=== PATIENT | female | born 1995 | race Caucasian/White ===

== ENCOUNTER → 2017-01-15 | Outpatient (CLI) | payer OTHER ==
[~2017-01-15] MED LIST: PEDICHW50 PO
== END | disposition home or self-care (01) ==
LOC: C.LAB1850 08:49
PROVIDERS: ATTEND Physician Assistant
DX: Z30.432 Encounter for removal of intrauterine contraceptive device (principal)

== ENCOUNTER → 2017-01-25 | Outpatient (CLI) | payer OTHER ==
--- NOTE | 2017-01-25 14:03 | MAMMOGRAPHY REPORT ---
ULTRASOUND OF BOTH BREASTS: 01/25/2017 CLINICAL HISTORY: The patient reports having a baby last February and breast-fed for one week. She was placed on the Mirena IUD in May and for the past 4-5 months has noticed bilateral clear spo ntaneous nipple discharge. The Mirena IUD was removed in December. She denies any bloody nipple dischar ge or palpable lumps. COMPARISON: No prior exams were available for comparison. TECHNIQUE: Real-time targeted ultrasound of both breasts was performed. FINDINGS: Real-time, high-resolution targeted ultrasound was performed of bilateral subareolar regio ns. Sonographically normal tissue is seen in these regions, without evidence of an intraductal mass or other suspicious sonographic abnormality. IMPRESSION: ACR BI-RADS CATEGORY 1: NEGATIVE No intraductal mass or other suspicious sonographic abnormality seen in bilateral subareolar regions. There is no sonographic evidence of malignancy. Recommend clinical follow-up for bilateral clear n ipple discharge. The patient was verbally notified of the results. Nadia Gray M.D. ah/:01/25/2017 11:16:18 Turn Down Man: Elva MARCELINO(Serenity)(Lilia), [facility] letter sent: Normal 1/2 BI-RADS Code: ACR BI-RADS Category 1: Negative
== END | disposition home or self-care (01) ==
LOC: C.MAMM 10:50
PROVIDERS: ATTEND Physician Assistant
DX: N64.52 Nipple discharge (principal)

== ENCOUNTER → 2017-07-13 | Outpatient (CLI) | payer OTHER | END | disposition home or self-care (01) | LOC: C.LABSPEC 11:27 | PROVIDERS: ATTEND Physician Assistant | DX: R39.9 Unspecified symptoms and signs involving the genitourinary system (principal) ==

== ENCOUNTER 2020-12-07 04:31 | Observation (INO) ==
[2020-12-07] MEDS ORDERED: OXYTOCIN 30 UNITS/500 ML BAG IV PRN (06:45)
[2020-12-07] MEDS ORDERED: LACTATED RINGER'S 1,000 ML IV PRN (06:45)
[2020-12-07 07:10] LABS: Hematocrit (blood only) 35.1 % (37-47); Hemoglobin 11.8 g/dL (12.0-16.0); Mean Corpuscular Hemoglobin 30.7 pg (25-34); Mean Corpuscular Hgb Conc 33.6 g/dL (32-36); Mean Corpuscular Volume 91.4 fL (80-100); Mean Platelet Volume 11.1 fL (7.4-10.4); Platelet Count 285 K/uL (130-400); RDW Coefficient of Variation 13.8 % (11.5-14.5); RDW Standard Deviation 45.2 fL (36.4-46.3); Red Blood Count 3.84 M/uL (4.2-5.4); White Blood Count 10.43 K/uL (4.8-10.8)
--- NOTE | 2020-12-07 07:40 | History & Physical Report ---
Date of Service December 07, 2020 Assessment & Plan (1) Encounter for supervision of normal in multigravida, antepartum: 25yo at 38.1 weeks GA. Labor. 1. Fetus: Cat 1 2. Labor: Progressing. 3. GBS: Negative 4. Vital: WNL (2) Normal labor: Admission and Anticipated Discharge Date Admission Date: December 07, 2020 History of Present Illness Primary Care Provider: NO PCP 25yo at 38.1 weeks GA. Present for labor. Patient progressed from 4cm to 5cm during labor evaluation. Denies LOF, VB. Good FM. OB Labs: Blood Type O Positive 05/05/20 Antibody Screen NEGATIVE 05/05/20 Hemoglobin 11.9 g/dL (12.0-16.0) L 09/23/20 Hematocrit 35.4 % (37-47) L 09/23/20 Mean Corpuscular Volume 92.4 fL (80-100) 05/05/20 Platelet Count 279 K/uL (130-400) 05/05/20 Rubella IgG Antibody Immune (Immune) 05/05/20 Rapid Plasma Reagin Nonreactive (Nonreactive) 05/05/20 Hepatitis B Surface Antigen Neg (Neg) 05/05/20 HIV (1&2) Ab and P24 Ag, 4th Gener Neg (Neg) 05/05/20 Glucose 1 Hour 50 gm Load 107 mg/dl (70-130) 09/23/20 OB Optional Labs: Chlamydia trachomatis RNA NOT DETECTED (NOT DETECTED) 05/05/20 Neisseria gonorrhoeae RNA NOT DETECTED (NOT DETECTED) 05/05/20 Labs Reviewed: neg cf/sma wyh declines genetics [facility] Allergies Allergy/AdvReac Type Severity Reaction Status Date / Time No Known Allergies Allergy Verified 12/02/20 13:45 Home Medications Medication Instructions Recorded Confirmed Type prenat.vits,lissette,fam-vyxm-rsxpc 1 tab PO DAILY 05/04/20 12/07/20 History Patient History Surgical History History of foot surgery S/P tonsillectomy S/P wisdom tooth extraction Family History Sister Depression Other Breast cancer Myocardial infarction Ovarian cancer Social History Smoking Status: Current every day smoker Tobacco Type: Cigarettes Cigarettes Per Day: 5; Hx Alcohol Use: No Hx Substance Use: No Preferred Language: Burundian Communication Ability: Effective Ammonia Technician Required: No Beliefs That Will Affect Care: None marital status: Single marital status details: Laureano (25) [phone] Current Living Situation: Family Current Living Situation Comment: lives with FOB, daughter, step daughter, 1 dog. current occupational status: unemployed Other Information That Helps Us Care for You: No Feels Safe at Home: Yes Safety Concerns: Feels Safe At This Time Assistive Devices: None Physical Exam Constitutional: WD/WN, vitals as above Psychiatric: A+Ox3, euthymic affect Genitourinary: OB Exam Abdomen: + vertex Manual OB Exam: + cervical dilation 5 cm, + cervical effacement 80% and + station -2 OB Exam Monitor Tracing: + external FHT monitor used, + external uterine monitor used, + category I and + normal FHT variability; no early decelerations present, no late decelerations present and no variable decelerations Results & Data ([facility]) Vital Signs (Past 12 Hours) Vital Signs Temp Pulse Resp BP 12/07/20 04:49 36.9 C 18 12/07/20 04:44 92 H 126/89 Code Status & VTE Plan VTE Prophylaxis Plan VTE Prophylaxis will be ordered: No Coding Level of Care Code None Diagnoses Encounter for supervision of normal in multigravida, antepartum Z34.80 Normal labor O80; Z37.9
--- NOTE | 2020-12-07 09:03 | Labor Progress Brief Note ---
Date of Service December 07, 2020 Subjective Ctx have spaced out, rates same intensity still Assessment & Plan (1) Encounter for supervision of normal in multigravida, antepartum: 25 y/o at 38 1/7 wga admitted for labor VSS Fetus cat 1 Labor - EMR notes SVE by nursing change from 4-4.5 earlier this AM, would say 4/75/-2 on my exam. Ctx seem to have spaced out, with GA discussed cannot augment. As this is my first exam, will let pt ambulate and recheck in few hours GBS neg, will today. Will re-collect if needed Admission and Anticipated Discharge Date Admission Date: December 07, 2020 Physical Exam Genitourinary: Manual OB Exam: + cervical dilation 4 cm, + cervical effacement 70% and + station -2 OB Exam Monitor Tracing: + external FHT monitor used, + external uterine monitor used (q3-9) and + category I (125/mod/+accel/-decel) Results & Data ([facility]) Vital Signs (Past 12 Hours) Vital Signs Temp Pulse Resp BP 12/07/20 08:18 82 126/74 12/07/20 08:17 97.7 F 18 12/07/20 04:49 98.4 F 18 12/07/20 04:44 92 H 126/89 Coding Level of Care Code None Diagnoses Encounter for supervision of normal in multigravida, antepartum Z34.80
--- NOTE | 2020-12-07 11:21 | Obstetrical Progress Note ---
Date of Service December 07, 2020 Assessment & Plan (1) Encounter for supervision of normal in multigravida, antepartum: 25 y/o at 38 1/7 wga admitted for labor VSS Fetus cat 1 Labor - SVE for me unchanged after ~2.5 hrs, has been around 4-4.5 since 5AM as well. Ctx have spaced out, more around every 10 minutes. Discussed again with GA, cannot augment so I think ok to discharge. With early labor, hard to say when will be come active but can be at any point so should call if ctx worsen from this point, decreased FM, LOF, VB. Has appt this , rec to keep. GBS neg, will today. Re-collected prior to my exam today Admission and Anticipated Discharge Date Admission Date: December 07, 2020 Subjective Ctx have spaced out, rates same intensity still Physical Exam Genitourinary: Manual OB Exam: + cervical dilation 4 cm, + cervical effacement 70% and + station -2 OB Exam Monitor Tracing: + external FHT monitor used, + external uterine monitor used (q3-10) and + category I (125/mod/+accel/-decel) Results & Data ([facility]) Vital Signs (Past 12 Hours) Vital Signs Temp Pulse Resp BP 12/07/20 08:18 82 126/74 12/07/20 08:17 97.7 F 18 12/07/20 04:49 98.4 F 18 12/07/20 04:44 92 H 126/89 PG Care Time/CCT Total # of Minutes Spent Total Time Spent with Patient: Total time spent is greater than 50% in coordination of care (as documented) at patient's floor/unit and/or counseling patient: Coding Level of Care Code None Diagnoses Encounter for supervision of normal in multigravida, antepartum Z34.80
--- NOTE | 2020-12-15 13:27 | Discharge Summary ---
Date of Service December 15, 2020 Admission HPI Per Admitting Provider 25yo at 38.1 weeks GA. Present for labor. Patient progressed from 4cm to 5cm during labor evaluation. Denies LOF, VB. Good FM. OB Labs: Blood Type O Positive 05/05/20 Antibody Screen NEGATIVE 05/05/20 Hemoglobin 11.9 g/dL (12.0-16.0) L 09/23/20 Hematocrit 35.4 % (37-47) L 09/23/20 Mean Corpuscular Volume 92.4 fL (80-100) 05/05/20 Platelet Count 279 K/uL (130-400) 05/05/20 Rubella IgG Antibody Immune (Immune) 05/05/20 Rapid Plasma Reagin Nonreactive (Nonreactive) 05/05/20 Hepatitis B Surface Antigen Neg (Neg) 05/05/20 HIV (1&2) Ab and P24 Ag, 4th Gener Neg (Neg) 05/05/20 Glucose 1 Hour 50 gm Load 107 mg/dl (70-130) 09/23/20 OB Optional Labs: Chlamydia trachomatis RNA NOT DETECTED (NOT DETECTED) 05/05/20 Neisseria gonorrhoeae RNA NOT DETECTED (NOT DETECTED) 05/05/20 Labs Reviewed: neg cf/sma akh declines genetics ak Admission Exam (Per Admitting) Genitourinary Manual OB Exam: + cervical dilation + 4 cm, + cervical effacement + 70% and + station + -2 OB Exam Monitor Tracing: + external FHT monitor used, + external uterine monitor used (q3-10) and + category I (125/mod/+accel/-decel) Discharge Data Consultations 12/07/20 06:45 Consult Anesthesiology Stat Hospital Course (1) Encounter for supervision of normal in multigravida, antepartum: SVE for me unchanged after ~2.5 hrs, has been around 4-4.5 since 5AM as well. Ctx have spaced out, more around every 10 minutes. Discussed again with GA, cannot augment so I think ok to discharge. With early labor, hard to say when will be come active but can be at any point so should call if ctx worsen from this point, decreased FM, LOF, VB. GBS neg, will today. Re-collected prior to my exam today. Stable for discharge home Coding Level of Care Code None Diagnoses Encounter for supervision of normal in multigravida, antepartum Z34.80
== END 2020-12-07 11:35 | disposition home or self-care (01) ==
LOC: OPB 04:31 → 4S1 04:33 → INTOOBSV 06:45 → 4S1 06:45
DX: Z34.83 Encounter for supervision of other normal pregnancy, third trimester; Z3A.38 38 weeks gestation of pregnancy; O60.03 Preterm labor without delivery, third trimester; F17.210 Nicotine dependence, cigarettes, uncomplicated

== ENCOUNTER 2020-12-19 03:00 | Inpatient (IN) ==
[2020-12-19] MEDS ORDERED: OXYTOCIN 30 UNITS/500 ML BAG IV PRN ×3 (03:37→12:27)
[2020-12-19] MEDS: LACTATED RINGER'S 1,000 ML IV PRN ×2 (03:57→04:54)
[2020-12-19] MEDS ORDERED: ePHEDrine sulfate 50 MG/ML AMP ONE (04:11)
[2020-12-19] MEDS ORDERED: SODIUM CHLORIDE 0.9% INJ 10 ML VIAL ONE (04:11)
[2020-12-19] MEDS ORDERED: BUPIVACAINE 0.25% 30 ML VIAL ONE (04:11)
[2020-12-19] MEDS ORDERED: fentaNYL citrate 100 MCG/2 ML VIAL ONE (04:11)
[2020-12-19 04:12] LABS: Hematocrit (blood only) 36.8 % (37-47); Hemoglobin 12.4 g/dL (12.0-16.0); Mean Corpuscular Hgb Conc 33.7 g/dL (32-36); Mean Corpuscular Volume 88.9 fL (80-100); Mean Platelet Volume 10.9 fL (7.4-10.4); Platelet Count 311 K/uL (130-400); RDW Coefficient of Variation 13.6 % (11.5-14.5); RDW Standard Deviation 44.6 fL (36.4-46.3); Red Blood Count 4.14 M/uL (4.2-5.4); White Blood Count 11.89 K/uL (4.8-10.8)
[2020-12-19] MEDS ORDERED: fentaNYL 2MCG/ML ROPIVACAINE 1.25MG/ML 100 ML BAG EPI ONE (04:12)
[2020-12-19] MEDS ORDERED: fentaNYL 2MCG/ML ROPIVACAINE 1.25MG/ML 100 ML BAG EPI PRN (04:34)
[2020-12-19] MEDS ORDERED: PROMETHAZINE HCL 25 MG in SODIUM CHLORIDE 0.9% 50 ML IV PRN (04:34)
[2020-12-19] MEDS ORDERED: NALOXONE HCL 0.4 MG/1 ML VIAL/CARP IV PRN (04:34)
[2020-12-19] MEDS ORDERED: ePHEDrine sulfate 50 MG/ML AMP IV PRN (04:34)
[2020-12-19] MEDS ORDERED: diphenhydrAMINE 50 MG/ML VIAL IV PRN (04:34)
[2020-12-19] MEDS ORDERED: ONDANSETRON INJ 2 MG/ML 2 ML VIAL IV PRN (04:34)
[2020-12-19] MEDS ORDERED: NALOXONE HCL 1 MG in SODIUM CHLORIDE 0.9% 1000ML 1,000 ML IV PRN (04:34)
--- NOTE | 2020-12-19 04:35 | Anesthesiology Consultation ---
Date of Service December 19, 2020 Assessment & Plan ASA ASA2 Proposed Anesthesia Anesthesia Type: Labor Epidural Risk / Benefits Reviewed With: PT / POA / Parent / Guardian, Accepts Plan and Informed Consent Obtained History Height/Weight Height: 5 ft 4 in Weight: 75.75 kg Allergies Allergy/AdvReac Type Severity Reaction Status Date / Time No Known Allergies Allergy Verified 12/19/20 03:17 Medications Home Medications Medication Instructions Recorded Confirmed Last Taken prenat.vits,lissette,rru-bhyp-aujrt 1 tab PO DAILY 05/04/20 12/19/20 12/18/20 Active Medications Generic Name Dose Route Start Last Admin Trade Name Freq PRN Reason Stop Dose Admin Lactated Ringer's 1,000 mls @ 125 mls/hr 12/19/20 03:37 12/19/20 04:54 Lr IV 12/21/20 03:36 125 mls/hr .Q8H PRN Administration L&D Protocol Protocol Exercise / Class Metabolic Activity II 4-5 Yardwork/Stairs/Walk up hill Past Family History Family History Sister Depression Other Breast cancer Myocardial infarction Ovarian cancer Past Surgical History Surgical History History of foot surgery S/P tonsillectomy S/P wisdom tooth extraction Past Anesthesia History No Hx of Anesthesia Complications and No Family Hx of Anesthesia Complications History of PONV No Hx of PONV and No Hx of Motion Sickness Social History Smoking Status: Current every day smoker tobacco type: cigarettes Smoking cigarettes per day: 5 Hx Alcohol Use: No Hx Substance Use: No substance use type: does not use Review of Systems denies fever/cough/ colds/ chest pain/ SOB/ ISABEL denies ISABEL Physical Exam Vital Signs Last Vital Signs Temp 36.8 C 12/19/20 03:18 Pulse 86 12/19/20 05:20 Resp 18 12/19/20 05:15 BP 119/65 12/19/20 05:18 Pulse Ox 99 12/19/20 05:20 ENMT Mouth: no TMJ abnormality and no dentition abnormality Thyromental Distance: > or= 3.5 Finger Breadths Mallampati Class: II Neck neck extension not limited Respiratory normal respiratory effort; no respiratory distress Auscultation: lungs clear to auscultation bilaterally Cardiovascular Rate/Rhythm: regular rate and regular rhythm Neurologic moves all extremities Psychiatric Orientation: alert and oriented x 3 Testing Laboratory Results 12/19/20 04:02 Blood Type O Positive 12/19/20 04:02 Antibody Screen NEGATIVE 12/19/20 04:02
[2020-12-19] MEDS ORDERED: DIPHTHERIA/TETANUS/PERTUSSIS 0.5 ML SYR/VIAL IM ONE (12:27)
[2020-12-19] MEDS ORDERED: HYDROCORTISONE ACETATE 25 MG SUPP PR PRN (12:27)
[2020-12-19] MEDS ORDERED: BENZOCAINE 20% AER SPR 82.5 GM CAN EXT PRN (12:27)
[2020-12-19] MEDS ORDERED: SUPERCREAM 0.870% 15 GM JAR EXT PRN (12:27)
[2020-12-19] MEDS ORDERED: bisacodyL 10 MG SUPP PR PRN (12:27)
--- NOTE | 2020-12-19 14:06 | Delivery Summary ---
DATE OF SERVICE: 12/19/2020 PROCEDURE: Normal spontaneous vaginal delivery. SURGEON: Mateusz Novak MD. PREOPERATIVE DIAGNOSES: 1. Single intrauterine at 39 weeks 6 days gestational age. 2. Spontaneous labor. POSTOPERATIVE DIAGNOSES: 1. Single intrauterine at 39 weeks 6 days gestational age. 2. Spontaneous labor. 3. Status post delivery. ESTIMATED BLOOD LOSS: 300 mL. DRAINS: None. FLUIDS: Continuous lactated Ringer. URINE OUTPUT: None. COMPLICATIONS: None. FINDINGS: Viable male with weight and Apgars pending. INDICATIONS: Elizabeth is a 25-year-old G2, P1-0-0-1 admitted at 5 cm dilation. The patient underwent artificial rupture of membranes and was later put on oxytocin. She received epidural for anesthesia and progressed to complete-complete, +2 station, pushed for approximately 2 contractions to achieve delivery. PROCEDURE DESCRIPTION: The patient progressed to 10 cm dilated, 100% effaced, positive 2 station, pu shed over intact perineum with epidural anesthesia, delivered a viable male infant, weight and Apgars as noted above. Head of the delivered in ANA MARIA position, restituted to left transverse. A nu chal cord was noted, which was easily reduced. Body and shoulders quickly followed. was not ed to be vigorous soon after delivery and 1 minute delayed cord clamping was initiated. Cord was the n double clamped and cut. Cord blood was obtained. Attention was then turned to delivery of the rajwinder centa, which was delivered intact with 3-vessel cord. Inspection of the perineum, vagina, cervix no alan no lacerations. Sponge and instrument counts were correct at the completion of case. Job ID: [id number]
--- NOTE | 2020-12-19 15:16 | Anesthesia Procedure Note ---
Date of Service December 19, 2020 Anesthesia Post Epidural Note Vital Signs Vital Signs: Temp Pulse Resp BP Pulse Ox 36.7 C 75 18 119/64 100 12/19/20 11:09 12/19/20 14:54 12/19/20 13:40 12/19/20 14:54 12/19/20 12:14 Pain Intensity Abdomen: Pain Intensity: 0 Notes Mental Status: alert / awake / arousable and participated in evaluation Patient Amnestic to Procedure: Yes Nausea / Vomiting: adequately controlled Pain: adequately controlled Airway Patency, RR, SpO2: stable & adequate BP & HR: stable & adequate Hydration State: stable & adequate Anesthetic Complications: no major complications apparent and Pt Satisfied with anesthetic care
[2020-12-19] MEDS: DOCUSATE SODIUM 100 MG CAP PO SCH (19:57)
[2020-12-19] MEDS: IBUPROFEN 600 MG TAB PO PRN (19:58)
[2020-12-19] MEDS: ACETAMINOPHEN 325 MG TAB PO PRN (19:58)
[2020-12-20] MEDS: IBUPROFEN 600 MG TAB PO PRN (02:33)
[2020-12-20] MEDS: ACETAMINOPHEN 325 MG TAB PO PRN (03:41)
--- NOTE | 2020-12-20 07:28 | Obstetrical Progress Note ---
Date of Service December 20, 2020 Assessment & Plan (1) Encounter for care and examination after delivery: 25yo day 1 s/p . Doing well. Stable for discharge Subjective Ambulation: ambulating normally Voiding: no voiding problems Diet Tolerance:: regular diet Lochia:: Moderate Physical Exam Constitutional WD/WN, vitals as above Respiratory normal respiratory effort; no respiratory distress and no labored breathing Gastrointestinal (Abdomen) Inspection/Auscultation: abdomen normal to inspection; abdomen not distended Percussion/Palpation: abdomen soft; abdomen nontender, no guarding and abdomen n ot rigid Genitourinary OB Exam Abdomen: + fundal height Fundus: + firm and + relation to umbilicus (Below); not tender and not boggy Results & Data ([facility]) Vital Signs (Past 12 Hours) Vital Signs Temp Pulse Resp BP Pulse Ox 12/20/20 03:30 36.4 C L 76 17 128/77 99 12/19/20 23:50 36.6 C 77 15 117/73 98 12/19/20 19:30 36.8 C 85 16 120/79 99
[2020-12-20] MEDS ORDERED: FERROUS SULFATE 325 MG TAB PO SCH (08:00)
[2020-12-20] MEDS ORDERED: PRENATAL VITAMIN 1 TAB PO SCH (08:00)
[2020-12-20] MEDS: DOCUSATE SODIUM 100 MG CAP PO SCH (08:29)
[2020-12-20] MEDS ORDERED: bisacodyL 5 MG TABEC PO SCH (20:00)
== END 2020-12-20 13:28 | disposition home or self-care (01) | DRG 807 ==
LOC: OPB 03:00 → 4S1 03:02 → 4S2 15:49

== ENCOUNTER 2021-11-25 16:06 | Observation (INO) ==
[2021-11-25] MEDS ORDERED: FAMOTIDINE 20MG IV PUSH 20 MG/5 ML SYR IV STA (17:12)
[2021-11-25] MEDS ORDERED: ACETAMINOPHEN 1,000 MG/100 ML VIAL IV STA (17:12)
[2021-11-25 17:54] LABS: Basophils # (auto) 0.03 K/uL (0-0.2); Basophils % (auto) 0.5 %; Eosinophils # (auto) 0.07 K/uL (0-0.5); Eosinophils % (auto) 1.2 %; Hematocrit (blood only) 42.6 % (37-47); Hemoglobin 14.5 g/dL (12.0-16.0); Immature Granulocytes # (auto) 0.01 K/uL (0.00-0.02); Immature Granulocytes % (auto) 0.2 %; Lymphocytes # (auto) 1.79 K/uL (1.2-3.4); Lymphocytes % (auto) 29.6 %; Mean Corpuscular Hemoglobin 30.7 pg (25-34); Mean Corpuscular Volume 90.1 fL (80-100); Mean Platelet Volume 11.9 fL (7.4-10.4); Neutrophils # (auto) 3.85 K/uL (1.4-6.5); Neutrophils % (auto) 63.5 %; Platelet Count 302 K/uL (130-400); RDW Coefficient of Variation 13.7 % (11.5-14.5); RDW Standard Deviation 45.2 fL (36.4-46.3); Red Blood Count 4.73 M/uL (4.2-5.4); White Blood Count 6.05 K/uL (4.8-10.8)
--- NOTE | 2021-11-25 18:00 | Emergency Department Note ---
History of Present Illness General Chief complaint: Chest Pain Stated complaint: CHEST PAINS Time Seen by Provider: 11/25/21 16:49 Source: patient Mode of arrival: ambulatory Limitations: no limitations History of Present Illness Provider complaint: Chest pain Onset (ago): day(s) 1 Location: chest Radiation: back and abdomen Maximum Pain Intensity: 3 Exacerbated By: + eating Associated symptoms: + nausea/vomiting; no fever/chills or no shortness of breath Treatments prior to arrival: none This is a 26-year-old female who presents emergency department with concern for chest pain. She states symptoms initially began yesterday, with some mild radiation into her upper back. She states she did notice the pain was worse after eating. She states no prior similar symptoms. She does have prior history of GERD and this felt different. She states she took some Aleve last night was able to go to sleep. She states when he woke up this morning there was discomfort still present although it was not as severe. She states she tried to eat cantaloupe for breakfast and subsequently vomited. She denies any hematemesis. States after this the pain felt worse in her chest as well as into her back and in the upper part of her stomach. Patient denies fevers, chills, cough, trouble breathing. She denies any recent URI symptoms. She denies any change in urine or stools. Patient states she does use control pills, no other medications. Pt seen during a time of high acuity and national emergency pandemic while wearing PPE. Home Medications Medication Instructions Recorded Confirmed Type norethindrone acetate 1 mg-ethinyl See Rx Instructions .ROUTE 10/20/21 11/25/21 Rx estradiol 20 mcg tablet (Junel) .COMPLEX #21 tab Allergies Allergy/AdvReac Type Severity Reaction Status Date / Time No Known Allergies Allergy Verified 11/25/21 18:16 Past Med/Surg History Medical History No pertinent past medical history Surgical History History of foot surgery S/P tonsillectomy S/P wisdom tooth extraction Family History Sister Depression Grandmother (Paternal) Breast cancer Great Grandmother Mother Ovarian cancer Grandmother (Maternal) Myocardial infarction Denies family history of Prostate cancer Colorectal cancer Social History Smoking Status: Current every day smoker Tobacco Type: Cigarettes Age Started Using Tobacco: 11; Cigarettes Per Day: 5-7; Second Hand Exposure: No; Do You Dip or Chew Tobacco: No; Tobacco Cessation Education Requested by Patient: No Hx Alcohol Use: No Hx Substance Use: No Preferred Language: Gibraltarian Communication Ability: Effective Study Assistant Required: No Beliefs That Will Affect Care: None marital status: Single marital status details: Laureano (26) [phone] Current Living Situation: Family Current Living Situation Comment: lives with FOB, daughter, step daughter, 1 dog. current occupational status: unemployed Other Information That Helps Us Care for You: No Feels Safe at Home: Yes Safety Concerns: Feels Safe At This Time caffeine: Yes Dental Care, Regularly: Yes Physical Activity Frequency: Daily Seatbelt Use: always Sunscreen Use: Yes Assistive Devices: None Review of Systems A total of 10 systems reviewed and were otherwise negative All systems reviewed & are unremarkable except as noted in HPI & below Physical Exam Vital Signs Vital Signs - 24 hr 11/25/21 16:06 11/25/21 16:09 11/25/21 18:06 Temperature 36.6 C Temperature Source Oral Pulse Rate 72 Pulse Rate [Apical] 71 68 Respiratory Rate 16 18 16 Respiratory Effort / Characteristics Non-Labored Respiratory Depth Normal Respiratory Pattern Regular Blood Pressure 118/91 Blood Pressure [Left Arm] 129/84 138/86 Blood Pressure Mean 100 Blood Pressure Mean [Left Arm] 99 103 Pulse Oximetry 98 99 99 Oxygen Delivery Method Room Air Room Air Sepsis Recent Fever Within 48 Hours No Sepsis New/Unexplained Change in Mental Status No Sepsis Action Taken by Nursing No Action Required 11/25/21 20:00 Temperature Temperature Source Pulse Rate Pulse Rate [Apical] 63 Respiratory Rate 18 Respiratory Effort / Characteristics Respiratory Depth Respiratory Pattern Blood Pressure Blood Pressure [Left Arm] 138/86 Blood Pressure Mean Blood Pressure Mean [Left Arm] 103 Pulse Oximetry 96 Oxygen Delivery Method Sepsis Recent Fever Within 48 Hours Sepsis New/Unexplained Change in Mental Status Sepsis Action Taken by Nursing GENERAL: alert, well appearing, well nourished, no distress, non-toxic EYE EXAM: normal conjunctiva, PERRL and EOM's grossly intact OROPHARYNX: no exudate, no erythema, lips, buccal mucosa, and tongue normal and mucous membranes are moist NECK: supple, no nuchal rigidity, no adenopathy, non-tender LUNGS: Clear to auscultation. Normal chest wall mechanics, no w/r/r HEART: no murmurs, S1 normal and S2 normal ABDOMEN: abdomen soft, mild epigastric and RUQ tenderness, normo-active bowel sounds, no masses, no rebound or guarding. BACK: Back is symmetrical on inspection and there is no deformity, no midline tenderness, no CVA tenderness. SKIN: no rashes and no bruising UPPER EXTREMITIES: upper extremities are grossly normal. FROM, nml pulses b/l. LOWER EXTREMITIES: No pitting edema. FROM, nml pulses b/l. NEURO EXAM: Normal sensorium, cranial nerves II-XII grossly intact, normal speech, no gross weakness of arms, no gross weakness of legs. Gross sensation intact. Course Course 1844: Pt updated on results. He does not take Tylenol. No history of hepatitis. 2011: She denies any use of alcohol, Tylenol, or other supplements. States no family history of autoimmune disorders or liver problems. States her last child was born 1 year ago, no issues with her gallbladder during . Administered Medications Lactated Ringer's (Lr) 1,000 mls @ 80 mls/hr IV .[id number] [facility] Stop: 12/26/21 00:00 Last Admin: 11/27/21 17:50 Dose: 80 mls/hr Documented by: [id number] Infusion: 11/27/21 13:30 Dose: 80 mls/hr Documented by: [id number] Infusion: 11/27/21 12:09 Dose: 80 mls/hr Documented by: [id number] Admin: 11/27/21 00:59 Dose: 80 mls/hr Documented by: [id number] Infusion: 11/27/21 00:56 Dose: 80 mls/hr Documented by: [id number] Admin: 11/26/21 12:26 Dose: 80 mls/hr Documented by: [id number] Infusion: 11/26/21 12:26 Dose: 80 mls/hr Documented by: [id number] Admin: 11/26/21 00:44 Dose: 80 mls/hr Documented by: [id number] Famotidine 20 mg/ Syringe 5 mls @ 2.5 mls/min IV Q12H [facility] Stop: 12/26/21 05:59 Last Admin: 11/27/21 17:53 Dose: 2.5 mls/min Documented by: [id number] Admin: 11/27/21 05:50 Dose: 2.5 mls/min Documented by: [id number] Admin: 11/26/21 18:37 Dose: 2.5 mls/min Documented by: [id number] Admin: 11/26/21 05:43 Dose: 2.5 mls/min Documented by: [id number] Cefepime HCl 2,000 mg/ Syringe 20 mls @ 5 mls/min IV Q12H ROMERO; Protocol Stop: 12/06/21 00:00 Last Admin: 11/27/21 12:13 Dose: 5 mls/min Documented by: [id number] Admin: 11/27/21 00:59 Dose: 5 mls/min Documented by: [id number] Admin: 11/26/21 12:26 Dose: 5 mls/min Documented by: [id number] Admin: 11/26/21 00:43 Dose: 5 mls/min Documented by: [id number] Ondansetron HCl (Ondansetron Inj 2 Mg/Ml 2 Ml Vial) 4 mg IV Q6H PRN PRN Reason: Nausea Stop: 12/26/21 00:00 Last Admin: 11/26/21 21:14 Dose: 4 mg Documented by: [id number] Admin: 11/26/21 06:44 Dose: 4 mg Documented by: [id number] Oxycodone/Acetaminophen (Oxycodone/Acetaminophen 5mg/325mg Tab) 1 tab PO Q4H PRN PRN Reason: MODERATE Pain (4,5,6) & Pre PT Stop: 12/11/21 12:04 Last Admin: 11/27/21 13:04 Dose: 1 tab Documented by: [id number] Discontinued Medications Bupivacaine HCl (Bupivacaine 0.5 % 5 Mg/1 Ml Mpf 30ml Vial) Confirm Administered Dose 30 ml .ROUTE .STK-MED ONE Stop: 11/27/21 10:01 Last Admin: 11/27/21 10:53 Dose: 30 ml Documented by: [id number] Epinephrine HCl (Epinephrine Inj 1 Mg/Ml Amp) Confirm Administered Dose 1 mg .ROUTE .STK-MED ONE Stop: 11/27/21 10:09 Last Admin: 11/27/21 10:53 Dose: 0.15 mg Documented by: [id number] Fentanyl Citrate (Fentanyl Citrate 100 Mcg/2 Ml Vial) 25 mcg IV Q5M PRN PRN Reason: PACU Use Only-Pain Stop: 11/27/21 18:02 Last Admin: 11/27/21 11:31 Dose: 25 mcg Documented by: [id number] Admin: 11/27/21 11:26 Dose: 25 mcg Documented by: [id number] Famotidine (Pepcid 20mg Iv Push) 20 mg in 5 mls @ 2.5 mls/min IV NOW STA Stop: 11/25/21 17:13 Last Admin: 11/25/21 17:25 Dose: 2.5 mls/min Documented by: [id number] Acetaminophen (Ofirmev) 1,000 mg in 100 mls @ 400 mls/hr IV NOW STA Stop: 11/25/21 17:26 Last Infusion: 11/26/21 00:01 Dose: 0 mls/hr Documented by: [id number] Admin: 11/25/21 17:25 Dose: 400 mls/hr Documented by: [id number] Ioversol (Optiray 320 125ml) 100 ml IV ONCE ONE Stop: 11/25/21 19:09 Last Admin: 11/25/21 19:09 Dose: 100 ml Documented by: [id number] Medical Decision Making Differential Diagnosis Differential diagnoses includes but is not limited to acute coronary syndrome, myocardial infarction, pericarditis, pulmonary embolus, aortic dissection, pneumonia, pneumothorax, musculoskeletal, shingles, esophageal. Medical Records Attestation: I reviewed the patient's medical records. Home Medications Current Medication List: was personally reviewed by me Laboratory Data Attestation: I reviewed the patient's lab results. Result diagrams: 11/27/21 07:27 11/27/21 07:27 Lab Results 11/25/21 11/25/21 11/25/21 Range/Units 16:38 16:38 16:38 WBC 6.05 (4.8-10.8) K/uL RBC 4.73 (4.2-5.4) M/uL Hgb 14.5 (12.0-16.0) g/dL Hct 42.6 (37-47) % MCV 90.1 (80-100) fL MCH 30.7 (25-34) pg MCHC 34.0 (32-36) g/dL RDW Std Deviation 45.2 (36.4-46.3) fL RDW Coeff of Maria Isabel 13.7 (11.5-14.5) % Plt Count 302 (130-400) K/uL MPV 11.9 H (7.4-10.4) fL Immature Gran % (Auto) 0.2 % Neut % (Auto) 63.5 % Lymph % (Auto) 29.6 % Eddy % (Auto) 5.0 % Eos % (Auto) 1.2 % Baso % (Auto) 0.5 % Neut # (Auto) 3.85 (1.4-6.5) K/uL Lymph # (Auto) 1.79 (1.2-3.4) K/uL Eddy # (Auto) 0.30 (0.11-0.59) K/uL Eos # (Auto) 0.07 (0-0.5) K/uL Baso # (Auto) 0.03 (0-0.2) K/uL Immature Gran # (Auto) 0.01 (0.00-0.02) K/uL D-Dimer 1380 H* (0-500) ug/L FEU Sodium 136 (136-145) mmol/L Potassium 3.9 (3.5-5.1) mmol/L Chloride 105 (98-107) mmol/L Carbon Dioxide 24 (21-32) mmol/L Anion Gap 7 (3-11) BUN 10 (6-23) mg/dl Creatinine 0.68 (0.6-1.2) mg/dl Est Cr Clr Drug Dosing 126.0 ml/min Est GFR ( Amer) 138.9 ml/min Est GFR (Non-Af Amer) 119.9 ml/min BUN/Creatinine Ratio 14.7 (10-20) Glucose 88 (70-99(Fasting)) mg/dl Calcium 9.1 (8.5-10.1) mg/dl Magnesium 1.9 (1.7-2.4) mg/dl Total Bilirubin 1.6 H (0.2-1.0) mg/dl AST 521 H (13-39) U/L ALT 383 H (7-52) U/L Alkaline Phosphatase 150 H (34-104) U/L Total Creatine Kinase 95 (26-192) U/L Troponin I High Sens 2.9 (0-14) pg/ml Total Protein 7.6 (6.0-8.3) gm/dl Albumin 4.2 (3.4-5.0) gm/dl Globulin 3.4 (2.5-4.0) gm/dl Albumin/Globulin Ratio 1.2 (0.9-2) Lipase 23 (11-82) U/L TSH HCG, Qual Anaplasma Smear Babesia Smear Lyme Disease IgG Ab Lyme Disease IgM Ab SARS-CoV-2 (PCR) (Negative) Hepatitis A IgM Ab (NON-REACTIVE) Hep Bs Antigen (NON-REACTIVE) Hep Bs Ag Confirmation Hep B Core IgM Ab (NON-REACTIVE) Hepatitis C Ab (EIA) (NON-REACTIVE) Hep C Ab Signal/Cutoff (<1.00) Monoscreen (Negative) Influenza Type A (PCR) (Neg) Influenza Type B (PCR) (Neg) RSV (RT-PCR) (Neg) 11/25/21 11/25/21 11/25/21 Range/Units 16:38 16:38 16:38 WBC (4.8-10.8) K/uL RBC (4.2-5.4) M/uL Hgb (12.0-16.0) g/dL Hct (37-47) % MCV (80-100) fL MCH (25-34) pg MCHC (32-36) g/dL RDW Std Deviation (36.4-46.3) fL RDW Coeff of Maria Isabel (11.5-14.5) % Plt Count (130-400) K/uL MPV (7.4-10.4) fL Immature Gran % (Auto) % Neut % (Auto) % Lymph % (Auto) % Eddy % (Auto) % Eos % (Auto) % Baso % (Auto) % Neut # (Auto) (1.4-6.5) K/uL Lymph # (Auto) (1.2-3.4) K/uL Eddy # (Auto) (0.11-0.59) K/uL Eos # (Auto) (0-0.5) K/uL Baso # (Auto) (0-0.2) K/uL Immature Gran # (Auto) (0.00-0.02) K/uL D-Dimer (0-500) ug/L FEU Sodium (136-145) mmol/L Potassium (3.5-5.1) mmol/L Chloride (98-107) mmol/L Carbon Dioxide (21-32) mmol/L Anion Gap (3-11) BUN (6-23) mg/dl Creatinine (0.6-1.2) mg/dl Est Cr Clr Drug Dosing ml/min Est GFR ( Amer) ml/min Est GFR (Non-Af Amer) ml/min BUN/Creatinine Ratio (10-20) Glucose (70-99(Fasting)) mg/dl Calcium (8.5-10.1) mg/dl Magnesium (1.7-2.4) mg/dl Total Bilirubin (0.2-1.0) mg/dl AST (13-39) U/L ALT (7-52) U/L Alkaline Phosphatase (34-104) U/L Total Creatine Kinase (26-192) U/L Troponin I High Sens (0-14) pg/ml Total Protein (6.0-8.3) gm/dl Albumin (3.4-5.0) gm/dl Globulin (2.5-4.0) gm/dl Albumin/Globulin Ratio (0.9-2) Lipase (11-82) U/L TSH Cancelled HCG, Qual Cancelled Anaplasma Smear See Comment Babesia Smear See Comment Lyme Disease IgG Ab Cancelled Lyme Disease IgM Ab Cancelled SARS-CoV-2 (PCR) (Negative) Hepatitis A IgM Ab (NON-REACTIVE) Hep Bs Antigen (NON-REACTIVE) Hep Bs Ag Confirmation Hep B Core IgM Ab (NON-REACTIVE) Hepatitis C Ab (EIA) (NON-REACTIVE) Hep C Ab Signal/Cutoff (<1.00) Monoscreen (Negative) Influenza Type A (PCR) (Neg) Influenza Type B (PCR) (Neg) RSV (RT-PCR) (Neg) 11/25/21 11/25/21 11/25/21 Range/Units 19:01 19:01 20:38 WBC (4.8-10.8) K/uL RBC (4.2-5.4) M/uL Hgb (12.0-16.0) g/dL Hct (37-47) % MCV (80-100) fL MCH (25-34) pg MCHC (32-36) g/dL RDW Std Deviation (36.4-46.3) fL RDW Coeff of Maria Isabel (11.5-14.5) % Plt Count (130-400) K/uL MPV (7.4-10.4) fL Immature Gran % (Auto) % Neut % (Auto) % Lymph % (Auto) % Eddy % (Auto) % Eos % (Auto) % Baso % (Auto) % Neut # (Auto) (1.4-6.5) K/uL Lymph # (Auto) (1.2-3.4) K/uL Eddy # (Auto) (0.11-0.59) K/uL Eos # (Auto) (0-0.5) K/uL Baso # (Auto) (0-0.2) K/uL Immature Gran # (Auto) (0.00-0.02) K/uL D-Dimer (0-500) ug/L FEU Sodium (136-145) mmol/L Potassium (3.5-5.1) mmol/L Chloride (98-107) mmol/L Carbon Dioxide (21-32) mmol/L Anion Gap (3-11) BUN (6-23) mg/dl Creatinine (0.6-1.2) mg/dl Est Cr Clr Drug Dosing ml/min Est GFR ( Amer) ml/min Est GFR (Non-Af Amer) ml/min BUN/Creatinine Ratio (10-20) Glucose (70-99(Fasting)) mg/dl Calcium (8.5-10.1) mg/dl Magnesium (1.7-2.4) mg/dl Total Bilirubin (0.2-1.0) mg/dl AST (13-39) U/L ALT (7-52) U/L Alkaline Phosphatase (34-104) U/L Total Creatine Kinase (26-192) U/L Troponin I High Sens (0-14) pg/ml Total Protein (6.0-8.3) gm/dl Albumin (3.4-5.0) gm/dl Globulin (2.5-4.0) gm/dl Albumin/Globulin Ratio (0.9-2) Lipase (11-82) U/L TSH 1.238 HCG, Qual Negative Anaplasma Smear Babesia Smear Lyme Disease IgG Ab Negative Lyme Disease IgM Ab Negative SARS-CoV-2 (PCR) NEGATIVE (Negative) Hepatitis A IgM Ab (NON-REACTIVE) Hep Bs Antigen (NON-REACTIVE) Hep Bs Ag Confirmation Hep B Core IgM Ab (NON-REACTIVE) Hepatitis C Ab (EIA) (NON-REACTIVE) Hep C Ab Signal/Cutoff (<1.00) Monoscreen Negative (Negative) Influenza Type A (PCR) Negative (Neg) Influenza Type B (PCR) Negative (Neg) RSV (RT-PCR) Negative (Neg) 11/25/21 Range/Units 20:58 WBC (4.8-10.8) K/uL RBC (4.2-5.4) M/uL Hgb (12.0-16.0) g/dL Hct (37-47) % MCV (80-100) fL MCH (25-34) pg MCHC (32-36) g/dL RDW Std Deviation (36.4-46.3) fL RDW Coeff of Maria Isabel (11.5-14.5) % Plt Count (130-400) K/uL MPV (7.4-10.4) fL Immature Gran % (Auto) % Neut % (Auto) % Lymph % (Auto) % Eddy % (Auto) % Eos % (Auto) % Baso % (Auto) % Neut # (Auto) (1.4-6.5) K/uL Lymph # (Auto) (1.2-3.4) K/uL Eddy # (Auto) (0.11-0.59) K/uL Eos # (Auto) (0-0.5) K/uL Baso # (Auto) (0-0.2) K/uL Immature Gran # (Auto) (0.00-0.02) K/uL D-Dimer (0-500) ug/L FEU Sodium (136-145) mmol/L Potassium (3.5-5.1) mmol/L Chloride (98-107) mmol/L Carbon Dioxide (21-32) mmol/L Anion Gap (3-11) BUN (6-23) mg/dl Creatinine (0.6-1.2) mg/dl Est Cr Clr Drug Dosing ml/min Est GFR ( Amer) ml/min Est GFR (Non-Af Amer) ml/min BUN/Creatinine Ratio (10-20) Glucose (70-99(Fasting)) mg/dl Calcium (8.5-10.1) mg/dl Magnesium (1.7-2.4) mg/dl Total Bilirubin (0.2-1.0) mg/dl AST (13-39) U/L ALT (7-52) U/L Alkaline Phosphatase (34-104) U/L Total Creatine Kinase (26-192) U/L Troponin I High Sens (0-14) pg/ml Total Protein (6.0-8.3) gm/dl Albumin (3.4-5.0) gm/dl Globulin (2.5-4.0) gm/dl Albumin/Globulin Ratio (0.9-2) Lipase (11-82) U/L TSH HCG, Qual Anaplasma Smear Babesia Smear Lyme Disease IgG Ab Lyme Disease IgM Ab SARS-CoV-2 (PCR) (Negative) Hepatitis A IgM Ab NON-REACTIVE (NON-REACTIVE) Hep Bs Antigen NON-REACTIVE (NON-REACTIVE) Hep Bs Ag Confirmation TNP Hep B Core IgM Ab NON-REACTIVE (NON-REACTIVE) Hepatitis C Ab (EIA) NON-REACTIVE (NON-REACTIVE) Hep C Ab Signal/Cutoff 0.01 (<1.00) Monoscreen (Negative) Influenza Type A (PCR) (Neg) Influenza Type B (PCR) (Neg) RSV (RT-PCR) (Neg) Imaging Data Radiologist's Impression: Gallbladder Ultrasound 11/25/21 17:12 US gallbladder CLINICAL HISTORY: RUQ pain after eating. COMPARISON: None. TECHNIQUE: Multiple grayscale and color images of the right upper quadrant of the abdomen. FINDINGS: Pancreas: The pancreas is within normal limits with no focal mass or peripancreatic fluid collection identified. Liver: The liver is homogeneous in echogenicity There is no evidence for a focal mass. There is no intrahepatic biliary duct dilatation. Gallbladder: The gallbladder is well distended with cholelithiasis. There is no evidence for gallbladder wall thickening or pericholecystic edema. There was reportedly a negative sonographic Nagel sign. Common Bile Duct: (CBD): It is normal in size measuring 4 mm. Inferior Vena Cava (IVC): The imaged IVC is patent. Right kidney: There is no evidence for hydronephrosis, calculus or gross renal mass. The kidney is normal in size. It measures 9.9 cm in greatest length. IMPRESSION: 1. Cholelithiasis with no definite ultrasound evidence for acute cholecystitis. ACT 112: Negative or not required by law. Electronically signed by: Eriberto Montoya M.D. 11/25/2021 6:30 PM Chest CTA 11/25/21 18:51 CT angio chest PE protocol CLINICAL HISTORY: Mediastinal chest pain extending into both shoulders. COMPARISON STUDY: No previous studies for comparison. CT DOSE: 337.45 mGy.cm TECHNIQUE: CT Angio of the chest was performed.followed by image post proc essing with coronal, and sagittal MIP reformats. Contrast Volume: Optiray 320, 100 ml FINDINGS: Vasculature: There is homogeneous perfusion of the pulmonary vasculature bilaterally. No intraluminal filling defects or evidence for pulmonary embolus is seen. Airway: The airway is clear. No endobronchial lesion is identified. Lungs: The lungs are clear of acute alveolar opacities, air bronchograms or pulmonary nodules. Pleura: There is no evidence for pleural effusion. There is no evidence for pneumothorax. Mediastinum: There is no evidence for pathologic adenopathy. The heart size is within normal limits. The thoracic aorta is within normal limits. There is no evidence for pericardial effusion. Upper abdomen:The adrenal glands are normal bilaterally. There is evidence for fatty infiltration of the liver. Osseous structures: There is no acute osseous pathology. Impression: 1. No CTA evidence for pulmonary embolus. 2. No acute chest disease. 3. Fatty infiltration of the liver. ACT 112: Negative or not required by law. Electronically signed by: Eriberto Montoya M.D. 11/25/2021 7:36 PM ECG Data Attestation: I personally reviewed and interpreted this ECG as follows: Indication: + chest pain Rate (beats per minute): 61 Rhythm: + normal sinus ECG Intervals/blocks: + Normal QRS and + Normal QT ECG Arnot: + Normal ECG ST segments: + Nonspecific ST abnormalities MDM Narrative An order was placed for continuous cardiac monitoring. The monitor shows a rate of _82_ with _normal sinus_ rhythm. This is a otherwise healthy 26-year-old female presents due to concern for chest pain, nausea and vomiting. Patient was afebrile and hemodynamically stable. Labs drawn and sent, EKG performed, and chest x-ray performed. These were reviewed and patient found to have significantly elevated LFTs. Patient denied any recent illness, no use of alcohol, Tylenol, no other tick bites, does not take any medications other than control. CT angiography of the chest was pursued due to elevated D-dimer. Troponin was negative. Initial right upper quadrant ultrasound was negative for acute pathology given the abnormal LFTs, CT of the abdomen pelvis was also performed and reassuring. Patient does have evidence of cholelithiasis, no evidence of acute cholecystitis. Due to significant elevation and persistence of chest discomfort, case discussed with hospitalist for additional evaluation and management. Additional markers were added for possible autoimmune phenomenon, as well as hepatitis panel. Impression & Plan Chest pain, Abnormal LFTs, Nausea & vomiting Discharge Plan Visit Data Chief Complaint: Chest Pain Stated Complaint: CHEST PAINS ED Provider: Olya Fabian Discharge Problem: Chest pain, Abnormal LFTs, Nausea & vomiting Patient Disposition: Admitted As Inpatient Discharge Instructions Interventions: ED Discharge Assessment Last Done: 11/26/21 00:41 Discharge Problem: Chest pain Qualifiers: Chest pain type: unspecified Qualified Code(s): R07.9 - Chest pain, unspecified Nausea & vomiting Qualifiers: Vomiting type: unspecified Qualified Code(s): R11.2 - Nausea with vomiting, unspecified
[2021-11-25 18:16] LABS: D Dimer 1380 ug/L FEU (0-500); Troponin I High Sensitivity 2.9 pg/ml (0-14)
[2021-11-25 18:17] LABS: Albumin Globulin Ratio 1.2 (0.9-2); Albumin Level 4.2 gm/dl (3.4-5.0); BUN Creatinine Ratio 14.7 (10-20); Bilirubin,Total 1.6 mg/dl (0.2-1.0); Calcium 9.1 mg/dl (8.5-10.1); Est GFR (African American) 138.9 ml/min; Est GFR (Non-African American) 119.9 ml/min; Globulin 3.4 gm/dl (2.5-4.0); Magnesium 1.9 mg/dl (1.7-2.4); Potassium 3.9 mmol/L (3.5-5.1); Total Protein 7.6 gm/dl (6.0-8.3)
--- NOTE | 2021-11-25 18:32 | Ultrasound Report ---
US gallbladder CLINICAL HISTORY: RUQ pain after eating. COMPARISON: None. TECHNIQUE: Multiple grayscale and color images of the right upper quadrant of the abdomen. FINDINGS: Pancreas: The pancreas is within normal limits with no focal mass or peripancreatic fluid collection identified. Liver: The liver is homogeneous in echogenicity There is no evidence for a focal mass. There is no in trahepatic biliary duct dilatation. Gallbladder: The gallbladder is well distended with cholelithiasis. There is no evidence for gallblad bipin wall thickening or pericholecystic edema. There was reportedly a negative sonographic Nagel sign . Common Bile Duct: (CBD): It is normal in size measuring 4 mm. Inferior Vena Cava (IVC): The imaged IVC is patent. Right kidney: There is no evidence for hydronephrosis, calculus or gross renal mass. The kidney is no rmal in size. It measures 9.9 cm in greatest length. IMPRESSION: 1. Cholelithiasis with no definite ultrasound evidence for acute cholecystitis. ACT 112: Negative or not required by law. Electronically signed by: Eriberto Montoya M.D. 11/25/2021 6:30 PM
[2021-11-25] MEDS ORDERED: OPTIRAY 320 125ml IV ONE (19:08)
--- NOTE | 2021-11-25 19:38 | CT Scan Report ---
CT angio chest PE protocol CLINICAL HISTORY: Mediastinal chest pain extending into both shoulders. COMPARISON STUDY: No previous studies for comparison. CT DOSE: 337.45 mGy.cm TECHNIQUE: CT Angio of the chest was performed.followed by image post processing with coronal, and s agittal MIP reformats. Contrast Volume: Optiray 320, 100 ml FINDINGS: Vasculature: There is homogeneous perfusion of the pulmonary vasculature bilaterally. No intraluminal filling defects or evidence for pulmonary embolus is seen. Airway: The airway is clear. No endobronchial lesion is identified. Lungs: The lungs are clear of acute alveolar opacities, air bronchograms or pulmonary nodules. Pleura: There is no evidence for pleural effusion. There is no evidence for pneumothorax. Mediastinum: There is no evidence for pathologic adenopathy. The heart size is within normal limits. The thoracic aorta is within normal limits. There is no evidence for pericardial effusion. Upper abdomen:The adrenal glands are normal bilaterally. There is evidence for fatty infiltration of the liver. Osseous structures: There is no acute osseous pathology. Impression: 1. No CTA evidence for pulmonary embolus. 2. No acute chest disease. 3. Fatty infiltration of the liver. ACT 112: Negative or not required by law. Electronically signed by: Eriberto Montoya M.D. 11/25/2021 7:36 PM
[2021-11-25 19:55] LABS: Monotest Negative (Negative); Pregnancy Test, Serum Negative (Negative)
[2021-11-25 20:21] LABS: Lyme Ab IgG w/WB Rflx Negative (Negative); Lyme Ab IgM w/WB Rflx Negative (Negative)
[2021-11-25 21:43] LABS: Influenza A virus by PCR Negative (Neg); Influenza B virus by PCR Negative (Neg); RSV by PCR Negative (Neg); SARS CoV2 RNA(COVID-19) InHosp NEGATIVE (Negative)
--- NOTE | 2021-11-25 23:13 | History & Physical Report ---
Date of Service November 25, 2021 Assessment & Plan (1) Right upper quadrant abdominal pain: Plan: Right upper quadrant abdominal pain/abnormal LFTs- Symptom complex is suggestive of gallbladder disease, although not confirmed on ultrasound or CT of abdomen pelvis Would like to order HIDA scan, however, may not be able to order it over the weekend NPO Placed on cefepime 2 g IV every 12 hours LR at 80 mils per hour Zofran 4 mg IV every 6 hours as needed Famotidine 20 mg IV every 12 hours Follow remainder of metabolic work-up ordered in the ED (2) Abnormal LFTs: Plan: See above History of Present Illness Chief Complaint: The patient presents to the emergency department with complaint of epigastric and right upper quadrant chest pain, that radiates around to her back. Primary Care Provider: Ramiro Amador DO The patient is a 26-year-old female with a past medical history including vitamin D deficiency, tobacco use, control use. She presents with symptoms as noted above. She denies any recent travels or sick exposures. Her symptoms began after trying to eat cantaloupe for breakfast, which caused her to vomit. Allergies Allergy/AdvReac Type Severity Reaction Status Date / Time No Known Allergies Allergy Verified 11/25/21 18:16 Home Medications Medication Instructions Recorded Confirmed Type norethindrone acetate 1 mg-ethinyl See Rx Instructions .ROUTE 10/20/21 11/25/21 Rx estradiol 20 mcg tablet (Junel) .COMPLEX #21 tab Past Med/Surg History Medical History No pertinent past medical history Surgical History History of foot surgery S/P tonsillectomy S/P wisdom tooth extraction Family History Sister Depression Grandmother (Paternal) Breast cancer Great Grandmother Mother Ovarian cancer Grandmother (Maternal) Myocardial infarction Denies family history of Prostate cancer Colorectal cancer Social History Smoking Status: Current every day smoker Tobacco Type: Cigarettes Age Started Using Tobacco: 11; Cigarettes Per Day: 5-7; Second Hand Exposure: No; Do You Dip or Chew Tobacco: No; Tobacco Cessation Education Requested by Patient: No Hx Alcohol Use: No Hx Substance Use: No Preferred Language: Maltese Communication Ability: Effective Foster Care Case Manager Required: No Beliefs That Will Affect Care: None marital status: Single marital status details: Laureano (26) [phone] Current Living Situation: Family Current Living Situation Comment: lives with FOB, daughter, step daughter, 1 dog. current occupational status: unemployed Other Information That Helps Us Care for You: No Feels Safe at Home: Yes Safety Concerns: Feels Safe At This Time caffeine: Yes Dental Care, Regularly: Yes Physical Activity Frequency: Daily Seatbelt Use: always Sunscreen Use: Yes Assistive Devices: None Review of Systems Review of Systems: The patient denies chest pain, palpitations, shortness of breath, dyspnea on exertion, cough, lower extremity swelling, sore throat, fevers, chills, sweats, diarrhea , constipation, blood in urine or stool, dysuria, urinary frequency or urgency, lightheadedness, dizziness, headache, memory loss, loss of consciousness, rash, abnormal bruising or bleeding, imbalance, focal or generalized weakness, numbness or tingling in arms or legs, generalized arthralgias or myalgias, neck pain, or night sweats. The review of systems is otherwise negative other than for that already noted a ana rosa, and at least 10 systems have been reviewed. Physical Exam Physical Exam: The patient is awake, alert and oriented 3, well developed and well nourished, normocephalic and atraumatic, lying in bed and in no acute distress. HEENT--PERRL, EOMI, mucous membranes and oropharynx normal. Neck--supple. No JVD. No bruits. Thyroid normal, trachea midline, no adenopathy. Heart--normal S1 and S2. No murmurs, rubs or gallops. Lungs--clear bilaterally, no respiratory distress, no accessory muscle use. Abdomen--normal bowel sounds and soft. Tender right upper quadrant. Nondistended, no hernias or masses, no organomegaly. Extremities--no cyanosis or clubbing. No edema. Dermatologic--normal skin turgor, normal color, no abnormal lymph nodes, no rash. Neurologic--cranial nerves II through XII grossly intact. Rheumatologic--normal range of motion. Psychiatric--normal affect. Results & Data Results & Data ([facility]) Vital Signs (Past 12 Hours) Vital Signs Temp Pulse Pulse Resp BP BP Pulse Ox 11/25/21 22:00 66 16 130/88 99 11/25/21 20:00 63 18 138/86 96 11/25/21 18:06 68 16 138/86 99 11/25/21 16:09 36.6 C 72 18 118/91 99 11/25/21 16:06 71 16 129/84 98 Laboratory Results Laboratory Results WBC 6.05 K/uL (4.8-10.8) 11/25/21 16:38 RBC 4.73 M/uL (4.2-5.4) 11/25/21 16:38 Hgb 14.5 g/dL (12.0-16.0) 11/25/21 16:38 Hct 42.6 % (37-47) 11/25/21 16:38 MCV 90.1 fL (80-100) 11/25/21 16:38 MCH 30.7 pg (25-34) 11/25/21 16:38 MCHC 34.0 g/dL (32-36) 11/25/21 16:38 RDW Std Deviation 45.2 fL (36.4-46.3) 11/25/21 16:38 RDW Coeff of Maria Isabel 13.7 % (11.5-14.5) 11/25/21 16:38 Plt Count 302 K/uL (130-400) 11/25/21 16:38 MPV 11.9 fL (7.4-10.4) H 11/25/21 16:38 Immature Gran % (Auto) 0.2 % 11/25/21 16:38 Neut % (Auto) 63.5 % 11/25/21 16:38 Lymph % (Auto) 29.6 % 11/25/21 16:38 [place] % (Auto) 5.0 % 11/25/21 16:38 Eos % (Auto) 1.2 % 11/25/21 16:38 Baso % (Auto) 0.5 % 11/25/21 16:38 Neut # (Auto) 3.85 K/uL (1.4-6.5) 11/25/21 16:38 Lymph # (Auto) 1.79 K/uL (1.2-3.4) 11/25/21 16:38 [place] # (Auto) 0.30 K/uL (0.11-0.59) 11/25/21 16:38 Eos # (Auto) 0.07 K/uL (0-0.5) 11/25/21 16:38 Baso # (Auto) 0.03 K/uL (0-0.2) 11/25/21 16:38 Immature Gran # (Auto) 0.01 K/uL (0.00-0.02) 11/25/21 16:38 D-Dimer 1380 ug/L FEU (0-500) H* 11/25/21 16:38 Sodium 136 mmol/L (136-145) 11/25/21 16:38 Potassium 3.9 mmol/L (3.5-5.1) 11/25/21 16:38 Chloride 105 mmol/L (98-107) 11/25/21 16:38 Carbon Dioxide 24 mmol/L (21-32) 11/25/21 16:38 Anion Gap 7 (3-11) 11/25/21 16:38 BUN 10 mg/dl (6-23) 11/25/21 16:38 Creatinine 0.68 mg/dl (0.6-1.2) 11/25/21 16:38 Est Cr Clr Drug Dosing 126.0 ml/min 11/25/21 16:38 Est GFR ( Amer) 138.9 ml/min 11/25/21 16:38 Est GFR (Non-Af Amer) 119.9 ml/min 11/25/21 16:38 BUN/Creatinine Ratio 14.7 (10-20) 11/25/21 16:38 Glucose 88 mg/dl (70-99(Fasting)) 11/25/21 16:38 Calcium 9.1 mg/dl (8.5-10.1) 11/25/21 16:38 Magnesium 1.9 mg/dl (1.7-2.4) 11/25/21 16:38 Total Bilirubin 1.6 mg/dl (0.2-1.0) H 11/25/21 16:38 AST 521 U/L (13-39) H 11/25/21 16:38 ALT 383 U/L (7-52) H 11/25/21 16:38 Alkaline Phosphatase 150 U/L (34-104) H 11/25/21 16:38 Total Creatine Kinase 95 U/L (26-192) 11/25/21 16:38 Troponin I High Sens 2.9 pg/ml (0-14) 11/25/21 16:38 Total Protein 7.6 gm/dl (6.0-8.3) 11/25/21 16:38 Albumin 4.2 gm/dl (3.4-5.0) 11/25/21 16:38 Globulin 3.4 gm/dl (2.5-4.0) 11/25/21 16:38 Albumin/Globulin Ratio 1.2 (0.9-2) 11/25/21 16:38 Lipase 23 U/L (11-82) 11/25/21 16:38 TSH 1.238 uIu/ml (0.300-4.500) 11/25/21 19:01 HCG, Qual Negative (Negative) 11/25/21 19:01 Anaplasma Smear See Comment 11/25/21 16:38 Babesia Smear See Comment 11/25/21 16:38 Lyme Disease IgG Ab Negative (Negative) 11/25/21 19:01 Lyme Disease IgM Ab Negative (Negative) 11/25/21 19:01 SARS-CoV-2 (PCR) NEGATIVE (Negative) 11/25/21 20:38 Monoscreen Negative (Negative) 11/25/21 19:01 Influenza Type A (PCR) Negative (Neg) 11/25/21 20:38 Influenza Type B (PCR) Negative (Neg) 11/25/21 20:38 RSV (RT-PCR) Negative (Neg) 11/25/21 20:38 Impressions Gallbladder Ultrasound 11/25/21 17:12 US gallbladder CLINICAL HISTORY: RUQ pain after eating. COMPARISON: None. TECHNIQUE: Multiple grayscale and color images of the right upper quadrant of the abdomen. FINDINGS: Pancreas: The pancreas is within normal limits with no focal mass or peripancreatic fluid collection identified. Liver: The liver is homogeneous in echogenicity There is no evidence for a focal mass. There is no intrahepatic biliary duct dilatation. Gallbladder: The gallbladder is well distended with cholelithiasis. There is no evidence for gallbladder wall thickening or pericholecystic edema. There was reportedly a negative sonographic Nagel sign. Common Bile Duct: (CBD): It is normal in size measuring 4 mm. Inferior Vena Cava (IVC): The imaged IVC is patent. Right kidney: There is no evidence for hydronephrosis, calculus or gross renal mass. The kidney is normal in size. It measures 9.9 cm in greatest length. IMPRESSION: 1. Cholelithiasis with no definite ultrasound evidence for acute cholecystitis. ACT 112: Negative or not required by law. Electronically signed by: Eriberto Montoya M.D. 11/25/2021 6:30 PM Chest CTA 11/25/21 18:51 CT angio chest PE protocol CLINICAL HISTORY: Mediastinal chest pain extending into both shoulders. COMPARISON STUDY: No previous studies for comparison. CT DOSE: 337.45 mGy.cm TECHNIQUE: CT Angio of the chest was performed.followed by image post processing with coronal, and sagittal MIP reformats. Contrast Volume: Optiray 320, 100 ml FINDINGS: Vasculature: There is homogeneous perfusion of the pulmonary vasculature bilaterally. No intraluminal filling defects or evidence for pulmonary embolus is seen. Airway: The airway is clear. No endobronchial lesion is identified. Lungs: The lungs are clear of acute alveolar opacities, air bronchograms or pulmonary nodules. Pleura: There is no evidence for pleural effusion. There is no evidence for pneumothorax. Mediastinum: There is no evidence for pathologic adenopathy. The heart size is within normal limits. The thoracic aorta is within normal limits. There is no evidence for pericardial effusion. Upper abdomen:The adrenal glands are normal bilaterally. There is evidence for fatty infiltration of the liver. Osseous structures: There is no acute osseous pathology. Impression: 1. No CTA evidence for pulmonary embolus. 2. No acute chest disease. 3. Fatty infiltration of the liver. ACT 112: Negative or not required by law. Electronically signed by: Eriberto Montoya M.D. 11/25/2021 7:36 PM Diagnostic Findings [facility] Patient: CONOR ALCALA (Female) : 89 Status: ER Date: 11/25/21 21:15 Room #: History: upper abd pain, abn LFT's Slices: [id number] Priors: Tech: Placido Tejada @ [id number] Exams: CT ABDOMEN & PELVIS Without Contrast Contrast: Accession Numbers: [id number] Referring Physician: RAMIRO AMADOR Preliminary Findings Only See Final Report For Complete Findings CT ABDOMEN & PELVIS Without Contrast: Comparison ultrasound from November 25, 2021. There is fatty infiltration of the liver. No focal liver lesion is seen. Cholelithiasis is present over the 1 cm layer of small stones in the dependent portion of a nondilated gallbladder. No pericholecystic inflammation, biliary duct dilation, or choledocholithiasis is identified. The kidneys enhance normally with contrast. No hydronephrosis or ureterolithiasis is seen. The urinary bladder is filled with contrast and unremarkable. The appendix is normal. There is a large amount of stool in the cecum and lower right colon measuring up to 6 cm suggesting mild constipation. The remaining bowel loops are nondilated. No pneumoperitoneum, free fluid, or acute inflammatory changes are seen involving the bowel. The uterus and adnexa appear unremarkable. Skeletal structures appear unremarkable. Radiologist: Laureano Rojo MD Study ready at 21:17 and initial results transmitted at 22:01 *This report constitutes a preliminary interpretation only. Non-acute findings felt to be unrelated to the clinical presentation may not be discussed in this report. The study will be interpreted and a final report will be generated by the local Radiologist the following shift. To reach the [facility] radiology department call [phone]. If a discrepancy is found between the preliminary and final interpretations of this study, please notify us via our Client Portal at [email or web address] under QA Exams. You can also fax this repo rt with a description of the discrepancy, or include the final report, to our daytime fax number [phone]. If faxing, please indicate the severity of discrepancy using one of the following categories: [ ] 1 - Agree/Informational [ ] 2 - Unlikely to Affect Management [ ] 3 - Possible Eventual Change of Management [ ] 4 - Probable Immediate Change of Management For all other patient related information, please fax us at [phone]. [id number] Code Status & VTE Plan Code Status Full code VTE Prophylaxis Plan VTE Prophylaxis will be ordered: Yes PG Care Time/CCT Total # of Minutes Spent Total Time Spent with Patient: Total time spent is greater than 50% in coordination of care (as documented) at patient's floor/unit and/or counseling patient: Coding Level of Care Code 33615 Initial Inpt Care Lvl 2 Diagnoses Right upper quadrant abdominal pain R10.11 Abnormal LFTs R79.89
[2021-11-26] MEDS: CEFEPIME 2,000 MG in SYRINGE 0 ML IV SCH ×2 (00:43→12:26)
[2021-11-26] MEDS: LACTATED RINGER'S 1,000 ML IV SCH ×2 (00:44→12:26)
[2021-11-26] MEDS: FAMOTIDINE 20 MG in SYRINGE 3 ML IV SCH ×2 (05:43→18:37)
[2021-11-26] MEDS: ONDANSETRON INJ 2 MG/ML 2 ML VIAL IV PRN ×2 (06:44→21:14)
[2021-11-26 06:53] LABS: Basophils # (auto) 0.05 K/uL (0-0.2); Basophils % (auto) 1.2 %; Eosinophils # (auto) 0.08 K/uL (0-0.5); Hemoglobin 13.3 g/dL (12.0-16.0); Immature Granulocytes # (auto) 0.01 K/uL (0.00-0.02); Immature Granulocytes % (auto) 0.2 %; Lymphocytes % (auto) 46.9 %; Mean Corpuscular Hemoglobin 29.8 pg (25-34); Mean Corpuscular Hgb Conc 33.3 g/dL (32-36); Mean Corpuscular Volume 89.5 fL (80-100); Mean Platelet Volume 11.3 fL (7.4-10.4); Monocytes # (auto) 0.25 K/uL (0.11-0.59); Monocytes % (auto) 6.2 %; Neutrophils # (auto) 1.76 K/uL (1.4-6.5); Neutrophils % (auto) 43.5 %; Platelet Count 283 K/uL (130-400); RDW Coefficient of Variation 13.7 % (11.5-14.5); RDW Standard Deviation 45.4 fL (36.4-46.3); Red Blood Count 4.47 M/uL (4.2-5.4); White Blood Count 4.05 K/uL (4.8-10.8)
[2021-11-26 07:03] LABS: Albumin Globulin Ratio 1.3 (0.9-2); Albumin Level 3.7 gm/dl (3.4-5.0); BUN Creatinine Ratio 15.3 (10-20); Bilirubin,Total 1.8 mg/dl (0.2-1.0); Calcium 8.7 mg/dl (8.5-10.1); Creatinine Clr Calc Pharmacy 145.2 ml/min; Est GFR (African American) 145.6 ml/min; Est GFR (Non-African American) 125.6 ml/min; Globulin 2.9 gm/dl (2.5-4.0); Magnesium 1.7 mg/dl (1.7-2.4); Potassium 3.8 mmol/L (3.5-5.1); Total Protein 6.6 gm/dl (6.0-8.3)
--- NOTE | 2021-11-26 08:24 | CT Scan Report ---
CT abd pelvis wo con CLINICAL HISTORY: upper abd pain, abn LFT's COMPARISON STUDY: No previous studies for comparison. CT DOSE: 444.89 mGy.cm TECHNIQUE: Standard CT of the Abdomen and Pelvis was performed without IV contrast. The patient did not receive oral contrast. A dose lowering technique was utilized adhering to the principles of ROSALIND Lyles FINDINGS: Lung base: The lung bases are clear. Abdominal cavity: There is no evidence for abdominal mass, adenopathy or ascites. Liver: The liver is homogeneous in fatty attenuation on these limited noncontrast images.. Spleen: The spleen is homogeneous in attenuation on these limited noncontrast images. Pancreas: The pancreas is homogeneous in attenuation on these limited noncontrast images. Gall Bladder: The gallbladder is distended with cholelithiasis. There is no CT evidence for acute cho lecystitis. Adrenal glands: The adrenal glands are normal in size and attenuation on these limited noncontrast im ages. Kidneys: The kidneys are homogeneous in attenuation on these limited noncontrast images. There is no evidence for gross renal mass, calculus or hydronephrosis bilaterally. Contrast is present within the collecting systems from earlier CTA chest. Bowel: The bowel loops are normally placed within the abdomen and pelvis without evidence for dilatat ion or obstruction. There is no evidence for mass lesion. There are no inflammatory changes present. There is no evidence for free air. There is a normal appendix in the right lower quadrant. Bladder: There is no evidence for focal bladder wall thickening, calculus or diverticulum. : There is no evidence for pelvic mass or adenopathy. There are cystic changes of the ovaries bilat erally. Vasculature: There is no evidence for focal aneurysmal dilatation of the abdominal aorta. Osseous structures: There is no acute osseous pathology. IMPRESSION: 1. Cholelithiasis with no CT evidence for acute cholecystitis. 2. By CT, there is evidence for fatty infiltration of liver. 3. Bilateral cystic changes of the ovaries. 4. No other acute intra-abdominal or pelvic abnormality on these limited noncontrast images. ACT 112: Negative or not required by law. Electronically signed by: Eriberto Montoya M.D. 11/26/2021 8:22 AM
--- NOTE | 2021-11-26 10:52 | Electrocardiogram Report ---
Test Reason : Blood Pressure : / mmHG Vent. Rate : 061 BPM Atrial Rate : 061 BPM P-R Int : 144 ms QRS Dur : 090 ms QT Int : 400 ms P-R-T Axes : -16 046 016 degrees QTc Int : 402 ms Poor data quality, interpretation may be adversely affected Normal sinus rhythm Normal ECG When compared with ECG of 04-MAR-2014 17:37, No significant change was found Confirmed by Richard Peterson ([id number]) on 11/26/2021 10:51:51 AM Referred By: Ramiro Correia Confirmed By:Rhett Peterson
--- NOTE | 2021-11-26 12:07 | Hospitalist Progress Note ---
Date of Service November 26, 2021 Assessment & Plan (1) Right upper quadrant abdominal pain: Plan: Medial right upper quadrant pain, transaminitis.? Choledocholithiasis vs cholecystitis No leukocytosis, afebrile bilirubin increasing from 1.6-1.8, AST and ALT elevation on admit, alk phos elevation on admit consistent with gallbladder disease Nagel's sign present on exam. CT: Cholelithiasis with no CT evidence for acute cholecystitis. By CT, there is evidence for fatty infiltration of liver. Bilateral cystic changes of the ovaries.4. No other acute intra-abdominal or pelvic abnormality on these limited noncontrast images. - Right upper quadrant abdominal pain/abnormal LFTs on admit Cefepime 2 g IV every 12 hours she had admitted to cover for cholecystitis - MRCP pending. If CBD stone --> ERCP, if negative EUS versus HIDA/surgical consultation Lipid panel pending Troponin negative on admit CK negative on admit hCG negative on admit N.p.o., continue LR 80 cc/h Zofran 4 mg IV every 6 hours as needed Famotidine 20 mg IV every 12 hours Dimer is elevated, follow-up CTA was negative for PE No potassium abnormalities, renal function normal with kidney function at baseline (2) Abnormal LFTs: Plan: See above Admission and Anticipated Discharge Date Admission Date: November 25, 2021 Subjective Seen at bedside. No fevers or chills, hungry but with some spasms that cause her epigastric pain. Does have epigastric pain which radiates into her back and right upper quadrant, otherwise denies chest pain, chest pressure, shortness of breath, cough, syncope/presyncope, nausea, vomiting, diarrhea, constipation. Symptoms did start immediately following a meal. No history of gallbladder problems. Review of Systems Review of Systems: All systems reviewed & are unremarkable except as noted in Subjective Physical Exam Physical Exam: General: A&Ox3. NAD. Cooperative. HEENT: Atraumatic, normocephalic. Hearing grossly intact Pulm: CTAB A&P. -wheezes, -rales, -rhonchi. Symmetrical chest rise. No increase in work of breathing. No respiratory distress. Cardiac: RRR, -mrg. Radial pulses intact and symmetrical. Abdominal: Immediate right upper quadrant pain on right upper quadrant abdominal/subcostal palpation worsened with inspiration consistent with Nagel sign trace epigastric/left lower quadrant pain which radiates to the right upper quadrant on deep palpation. Bowel sounds intact Results & Data Results & Data ([facility]) Vital Signs (Past 12 Hours) Vital Signs Temp Pulse Resp BP Pulse Ox 11/26/21 07:30 36.5 C 58 L 18 113/61 97 11/26/21 05:39 130/85 PG Care Time/CCT Total # of Minutes Spent Total Time Spent with Patient: Total time spent is greater than 50% in coordination of care (as documented) at patient's floor/unit and/or counseling patient: Coding Level of Care Code 36915 Subseq Hosp Care Lvl 2 Diagnoses Right upper quadrant abdominal pain R10.11 Abnormal LFTs R79.89
--- NOTE | 2021-11-26 15:24 | Magnetic Resonance Report ---
MR MRCP CLINICAL HISTORY: ?choledocolithiasis TECHNIQUE: Multiplanar multisequence MR images of the abdomen were obtained, as per MRCP protocol. . COMPARISON: None available at the time of this dictation. FINDINGS: Lower chest: No acute abnormality Liver: Unremarkable. No focal lesions are seen. Gallbladder and biliary tree: Cholelithiasis is seen without evidence of cholecystitis. No intra- or extrahepatic biliary ductal dilation. No choledocholithiasis is seen. Pancreas: Unremarkable, no focal lesions. Spleen: Splenule is incidentally noted. Adrenals: Unremarkable. Kidneys and ureters: Unremarkable. Bowel: Unremarkable. Lymph nodes Retroperitoneal: Unremarkable. Mesenteric: Unremarkable. Peritoneum: Normal Vessels: Unremarkable. Abdominal wall: Unremarkable. Bones: Unremarkable. IMPRESSION: 1. No acute abnormalities and in particular no evidence of choledocholithiasis. 2. Cholelithiasis is seen without evidence of cholecystitis. ACT 112: Negative or not required by law. Electronically signed by: Donis Mccullough M.D. 11/26/2021 3:21 PM
[2021-11-27] MEDS: LACTATED RINGER'S 1,000 ML IV SCH ×2 (00:59→17:50)
[2021-11-27] MEDS: CEFEPIME 2,000 MG in SYRINGE 0 ML IV SCH ×2 (00:59→12:13)
[2021-11-27 05:27] LABS: HBSAG NON-REACTIVE (NON-REACTIVE); Hepatitis A Antibody IgM NON-REACTIVE (NON-REACTIVE); Hepatitis B Core Antibody IgM NON-REACTIVE (NON-REACTIVE)
[2021-11-27] MEDS: FAMOTIDINE 20 MG in SYRINGE 3 ML IV SCH ×2 (05:50→17:53)
--- NOTE | 2021-11-27 07:17 | Anesthesiology Consultation ---
Date of Service November 27, 2021 Assessment & Plan (1) Encounter for pre-operative examination: Chart Review Chart Review: Acceptable Risk for Surgery and Patient NOT seen in Pre Admission Testing Consults Requested none History Surgery Operation Date: 11/27/21 11:30 Proposed Procedures p Laparoscopic Cholecystectomy - David Liao MD Height/Weight Height: 5 ft 4 in Weight: 78.5 kg Allergies Allergy/AdvReac Type Severity Reaction Status Date / Time No Known Allergies Allergy Verified 11/25/21 18:16 Medications Home Medications Medication Instructions Recorded Confirmed Last Taken norethindrone acetate 1 mg-ethinyl See Rx Instructions .ROUTE 10/20/21 11/25/21 Unknown estradiol 20 mcg tablet (Junel) .COMPLEX #21 tab Active Medications Generic Name Dose Route Start Last Admin Trade Name Freq PRN Reason Stop Dose Admin Lactated Ringer's 1,000 mls @ 80 mls/hr 11/26/21 00:00 11/27/21 00:59 Lr IV 12/26/21 00:00 80 mls/hr .[id number] ROMERO Administration Famotidine 20 mg/ Syringe 5 mls @ 2.5 mls/min 11/26/21 06:00 11/27/21 05:50 IV 12/26/21 05:59 2.5 mls/min Q12H ROMERO Administration Cefepime HCl 2,000 mg/ Syringe 20 mls @ 5 mls/min 11/26/21 00:00 11/27/21 00:59 IV 12/06/21 00:00 5 mls/min Q12H ROMERO Administration Protocol Ondansetron HCl 4 mg 11/26/21 00:00 11/26/21 21:14 Ondansetron Inj 2 Mg/Ml 2 Ml Vial IV 12/26/21 00:00 4 mg Q6H PRN Administration Nausea NPO Date Last Intake of Fluids: 11/26/21 Time Last Intake of Fluids: 23:59 Date Last Intake of Solids: 11/25/21 Time Last Intake of Solids: 08:00 Past Medical History Medical History No pertinent past medical history Past Family History Family History Sister Depression Grandmother (Paternal) Breast cancer Great Grandmother Mother Ovarian cancer Grandmother (Maternal) Myocardial infarction Denies family history of Prostate cancer Colorectal cancer Past Surgical History Surgical History History of foot surgery S/P tonsillectomy S/P wisdom tooth extraction Social History Smoking Status: Current every day smoker tobacco type: cigarettes Smoking cigarettes per day: 5-7 Do You Dip or Chew Tobacco: No Hx Alcohol Use: No Hx Substance Use: No substance use type: does not use Physical Exam Vital Signs Last Vital Signs Temp 97.9 F 11/27/21 07:00 Pulse 60 11/27/21 07:00 Resp 16 11/27/21 07:00 BP 115/75 11/27/21 07:00 Pulse Ox 98 11/27/21 07:00 Testing Laboratory Results 11/26/21 06:33 11/26/21 06:33 Electrocardiogram Date: 11/25/21 Findings: + NSR @
--- NOTE | 2021-11-27 07:40 | Surgery Consultation ---
Date of Consultation November 27, 2021 Assessment & Plan (1) Right upper quadrant abdominal pain: -cholelithiasis -pain still present -IVF and IV abx -to OR for lap stephy Present on Admission?: Yes (2) Abnormal LFTs: History of Present Illness Attending Physician: Chau Girard MD History of Present Illness This is a 26-year-old female presents emergency department with concern for chest pain/abdominal pain, which began two days ago with some mild radiation into her upper back. She states she did notice the pain was worse after eating. She states no prior similar symptoms. She does have prior history of GERD and this felt different. She has had nausea and subsequently vomited. She denies any hematemesis. Patient denies fevers, chills, cough, trouble breathing. She denies any recent URI symptoms. She denies any change in urine or stools. Patient states she does use control pills, no other medications Allergies Allergy/AdvReac Type Severity Reaction Status Date / Time No Known Allergies Allergy Verified 11/25/21 18:16 Home Medications Medication Instructions Recorded Confirmed Type norethindrone acetate 1 mg-ethinyl See Rx Instructions .ROUTE 10/20/21 11/25/21 Rx estradiol 20 mcg tablet (Junel) .COMPLEX #21 tab Patient History Medical History No pertinent past medical history Surgical History History of foot surgery S/P tonsillectomy S/P wisdom tooth extraction Family History Sister Depression Grandmother (Paternal) Breast cancer Great Grandmother Mother Ovarian cancer Grandmother (Maternal) Myocardial infarction Denies family history of Prostate cancer Colorectal cancer Social History Smoking Status: Current every day smoker Tobacco Type: Cigarettes Age Started Using Tobacco: 11; Cigarettes Per Day: 5-7; Second Hand Exposure: No; Do You Dip or Chew Tobacco: No; Tobacco Cessation Education Requested by Patient: No Hx Alcohol Use: No Hx Substance Use: No Preferred Language: Maltese Communication Ability: Effective Commission Broker Required: No Beliefs That Will Affect Care: None marital status: Single marital status details: Laureano (26) [phone] Current Living Situation: Family Current Living Situation Comment: lives with FOB, daughter, step daughter, 1 dog. current occupational status: unemployed Other Information That Helps Us Care for You: No Feels Safe at Home: Yes Safety Concerns: Feels Safe At This Time caffeine: Yes Dental Care, Regularly: Yes Physical Activity Frequency: Daily Seatbelt Use: always Sunscreen Use: Yes Assistive Devices: None Review of Systems Constitutional: no fever, no chills and no anorexia Eyes: no problem reported Ear, Nose, Mouth, Throat: no problem reported Respiratory: no cough and no dyspnea Cardiovascular: + chest pain Gastrointestinal: + abdominal pain, + nausea and + vomiting; no change in bowel habits Genitourinary: no dysuria Musculoskeletal: + back pain; no neck pain and no joint pain Integumentary: no rash and no lesions Neurologic: no localized weakness and no generalized weakness Psychiatric: no behavioral changes Hematologic / Lymphatic: no easy bleeding and no easy bruising Physical Exam Constitutional: well developed and well nourished Eyes: PERRL ENMT: external ear and nose normal, oropharynx normal Neck: trachea midline Respiratory: normal respiratory effort, lungs clear to auscultation Cardiovascular: RRR, no murmur, no edema Gastrointestinal (Abdomen): Inspection/Auscultation: abdomen normal to inspection; abdomen not distended Percussion/Palpation: + abdomen tender and abdomen soft; no guarding and abdomen not rigid Musculoskeletal: Head/Neck/Chest: normocephalic and head atraumatic Skin: no rashes, warm and dry Psychiatric: Orientation: alert and oriented x 3 Results & Data ([facility]) Vital Signs (Past 12 Hours) Vital Signs Temp Pulse Resp BP Pulse Ox 11/27/21 07:00 36.6 C 60 16 115/75 98 11/26/21 22:35 36.8 C 65 18 120/[address] abd pelvis wo con CLINICAL HISTORY: upper abd pain, abn LFT's COMPARISON STUDY: No previous studies for comparison. CT DOSE: 444.89 mGy.cm TECHNIQUE: Standard CT of the Abdomen and Pelvis was performed without IV contrast. The patient did not receive oral contrast. A dose lowering technique was utilized adhering to the principles of ALARA. FINDINGS: Lung base: The lung bases are clear. Abdominal cavity: There is no evidence for abdominal mass, adenopathy or ascites. Liver: The liver is homogeneous in fatty attenuation on these limited noncontrast images.. Spleen: The spleen is homogeneous in attenuation on these limited noncontrast images. Pancreas: The pancreas is homogeneous in attenuation on these limited noncontrast images. Gall Bladder: The gallbladder is distended with cholelithiasis. There is no CT evidence for acute cholecystitis. Adrenal glands: The adrenal glands are normal in size and attenuation on these limited noncontrast images. Kidneys: The kidneys are homogeneous in attenuation on these limited noncontrast images. There is no evidence for gross renal mass, calculus or hydronephrosis bilaterally. Contrast is present within the collecting systems from earlier CTA chest. Bowel: The bowel loops are normally placed within the abdomen and pelvis without evidence for dilatation or obstruction. There is no evidence for mass lesion. There are no inflammatory changes present. There is no evidence for free air. There is a normal appendix in the right lower quadrant. Bladder: There is no evidence for focal bladder wall thickening, calculus or diverticulum. : There is no evidence for pelvic mass or adenopathy. There are cystic changes of the ovaries bilaterally. Vasculature: There is no evidence for focal aneurysmal dilatation of the abdominal aorta. Osseous structures: There is no acute osseous pathology. IMPRESSION: 1. Cholelithiasis with no CT evidence for acute cholecystitis. 2. By CT, there is evidence for fatty infiltration of liver. 3. Bilateral cystic changes of the ovaries. 4. No other acute intra-abdominal or pelvic abnormality on these limited noncontrast images. MR MRCP CLINICAL HISTORY: ?choledocolithiasis TECHNIQUE: Multiplanar multisequence MR images of the abdomen were obtained, as per MRCP protocol. . COMPARISON: None available at the time of this dictation. FINDINGS: Lower chest: No acute abnormality Liver: Unremarkable. No focal lesions are seen. Gallbladder and biliary tree: Cholelithiasis is seen without evidence of cholecystitis. No intra- or extrahepatic biliary ductal dilation. No choledocholithiasis is seen. Pancreas: Unremarkable, no focal lesions. Spleen: Splenule is incidentally noted. Adrenals: Unremarkable. Kidneys and ureters: Unremarkable. Bowel: Unremarkable. Lymph nodes Retroperitoneal: Unremarkable. Mesenteric: Unremarkable. Peritoneum: Normal Vessels: Unremarkable. Abdominal wall: Unremarkable. Bones: Unremarkable. IMPRESSION: 1. No acute abnormalities and in particular no evidence of choledocholithiasis. 2. Cholelithiasis is seen without evidence of cholecystitis.
[2021-11-27 07:49] LABS: Basophils # (auto) 0.03 K/uL (0-0.2); Basophils % (auto) 0.7 %; Eosinophils # (auto) 0.11 K/uL (0-0.5); Eosinophils % (auto) 2.4 %; Hematocrit (blood only) 40.2 % (37-47); Hemoglobin 13.5 g/dL (12.0-16.0); Immature Granulocytes # (auto) 0.01 K/uL (0.00-0.02); Immature Granulocytes % (auto) 0.2 %; Lymphocytes # (auto) 1.93 K/uL (1.2-3.4); Lymphocytes % (auto) 42.8 %; Mean Corpuscular Hemoglobin 30.4 pg (25-34); Mean Corpuscular Hgb Conc 33.6 g/dL (32-36); Mean Corpuscular Volume 90.5 fL (80-100); Mean Platelet Volume 11.4 fL (7.4-10.4); Monocytes # (auto) 0.25 K/uL (0.11-0.59); Monocytes % (auto) 5.5 %; Neutrophils # (auto) 2.18 K/uL (1.4-6.5); Neutrophils % (auto) 48.4 %; Platelet Count 277 K/uL (130-400); RDW Coefficient of Variation 13.8 % (11.5-14.5); RDW Standard Deviation 46.1 fL (36.4-46.3); Red Blood Count 4.44 M/uL (4.2-5.4); White Blood Count 4.51 K/uL (4.8-10.8)
[2021-11-27 08:17] LABS: Albumin Globulin Ratio 1.3 (0.9-2); Albumin Level 3.7 gm/dl (3.4-5.0); BUN Creatinine Ratio 10.8 (10-20); Bilirubin,Total 0.8 mg/dl (0.2-1.0); Calcium 8.6 mg/dl (8.5-10.1); Creatinine Clr Calc Pharmacy 131.8 ml/min; Est GFR (Non-African American) 121.7 ml/min; Globulin 2.9 gm/dl (2.5-4.0); Magnesium 1.7 mg/dl (1.7-2.4); Potassium 3.8 mmol/L (3.5-5.1); Total Protein 6.6 gm/dl (6.0-8.3)
[2021-11-27] MEDS ORDERED: fentaNYL citrate 100 MCG/2 ML VIAL ONE ×3 (09:36→10:28)
[2021-11-27] MEDS ORDERED: MIDAZOLAM HCL 1 MG/ML 2ML VIAL ONE (09:36)
[2021-11-27] MEDS ORDERED: PROPOFOL IV EMULSION 10 MG/ML 20 ML VIAL IV ONE (09:39)
[2021-11-27] MEDS ORDERED: NEOSTIGMINE METHYLSULFATE 1 MG/ML 10ML VIAL ONE (09:39)
[2021-11-27] MEDS ORDERED: ROCURONIUM BROMIDE 10 MG/ML 5 ML VIAL IV ONE (09:39)
[2021-11-27] MEDS ORDERED: DEXAMETHASONE SOD INJ 4 MG/ML VIAL ONE (09:39)
[2021-11-27] MEDS ORDERED: LIDOCAINE 2% 2 ML VIAL/AMP(20MG/ML) INFIL ONE (09:39)
[2021-11-27] MEDS ORDERED: GLYCOPYRROLATE 0.2 MG/ML VIAL ONE (09:39)
[2021-11-27] MEDS ORDERED: BUPIVACAINE 0.5 % 5 MG/1 ML MPF 30ML VIAL ONE (10:00)
[2021-11-27] MEDS ORDERED: ATROPINE SULFATE 0.1 MG/ML 10ML SYR IV PRN (10:02)
[2021-11-27] MEDS ORDERED: ePHEDrine sulfate 50 MG/ML AMP IV PRN (10:02)
[2021-11-27] MEDS ORDERED: ONDANSETRON INJ 2 MG/ML 2 ML VIAL IV PRN (10:02)
[2021-11-27] MEDS ORDERED: EPINEPHrine INJ 1 MG/ML AMP ONE (10:08)
[2021-11-27] MEDS ORDERED: LABETALOL HCL IV 5 MG/ML 20ML IV ONE (10:36)
--- NOTE | 2021-11-27 10:59 | Post Operative Brief Note ---
Immediate Post Op Note v1 Date of Surgery November 27, 2021 Pre & Post Diagnosis Operation Date: 11/27/21 11:30 Pre-Op Diagnosis: Cholelithiasis, acute cholecystitis Post-Op Diagnosis: Cholelithiasis, acute cholecystitis I identified the patient and participated in the time-out.: Yes Procedure Operation Date: 11/27/21 11:30 Actual Procedures p Laparoscopic Cholecystectomy(Not Applicable) - David Liao MD Surgeon David Liao MD Chicken Raiser none Estimated Blood Loss 11 Findings Consistent with Post-Op Diagnosis
[2021-11-27] MEDS: fentaNYL citrate 100 MCG/2 ML VIAL IV PRN ×2 (11:26→11:31)
--- NOTE | 2021-11-27 11:44 | Anesthesiology Progress Note ---
Date of Service November 27, 2021 Anesthesia Post Procedure Vital Signs Vital Signs: Temp Pulse Pulse Pulse Resp BP BP 11/27/21 11:35 73 16 135/73 11/27/21 11:25 59 L 13 122/67 11/27/21 11:15 64 18 126/72 11/27/21 11:08 97.5 F L 73 14 132/78 11/27/21 07:00 97.9 F 60 16 115/75 11/26/21 22:35 98.2 F 65 18 120/71 11/26/21 16:27 97.7 F 65 18 Pulse Ox 11/27/21 11:35 97 11/27/21 11:25 100 11/27/21 11:15 97 11/27/21 11:08 100 11/27/21 07:00 98 11/26/21 22:35 97 11/26/21 16:27 98 Pain Intensity Abdomen: Pain Intensity: 3 Transfer of Care Handoff Completed per policy Notes Mental Status: alert / awake / arousable and participated in evaluation Patient Amnestic to Procedure: Yes Nausea / Vomiting: adequately controlled Pain: adequately controlled Airway Patency, RR, SpO2: stable & adequate BP & HR: stable & adequate Hydration State: stable & adequate Anesthetic Complications: no major complications apparent and Pt Satisfied with anesthetic care
[2021-11-27] MEDS ORDERED: oxyCODONE/ACETAMINOPHEN 5mg/325mg TAB PO PRN (12:05)
[2021-11-27] MEDS ORDERED: MoRPHine SULFATE 4 MG/ML 1 ML CARP\\VIAL IV PRN (12:05)
[2021-11-27] MEDS ORDERED: MoRPHine SULFATE 2 MG/ML CARP IV PRN (12:05)
--- NOTE | 2021-11-27 12:57 | Hospitalist Progress Note ---
Date of Service November 27, 2021 Assessment & Plan (1) Right upper quadrant abdominal pain: Plan: Medial right upper quadrant pain, cholelithiasis No leukocytosis, afebrile CT: Cholelithiasis with no CT evidence for acute cholecystitis. By CT, there is evidence for fatty infiltration of liver. Bilateral cystic changes of the ovaries.4. No other acute intra-abdominal or pelvic abnormality on these limited noncontrast images. - Right upper quadrant abdominal pain/abnormal LFTs on admit T bili normalized AST/ALT downtrending 11/27. Consistent with choledocholithiasis that passed and remaining cholelithiasis Cefepime 2 g IV every 12 hours, continue for 24 hours perioperative - MRCP with cholelithiasis, without choledocho S/p cholecystectomy 11/27 Dimer is elevated, follow-up CTA was negative for PE Advance diet as tolerated,, observe overnight with repeat labs in the morning and possible discharge tomorrow. Doing well. (2) Abnormal LFTs: Plan: See above Admission and Anticipated Discharge Date Admission Date: November 25, 2021 Subjective Seen at bedside postop. Patient feels well. Has some postop pain at her incision site, otherwise denies pain. Has been tolerating clears well without any pain. Denies fever, chills, sweats, lightheadedness, dizziness. Okay with advancing diet overnight and hopeful for discharge tomorrow if continues to feel well and tolerating diet Review of Systems Review of Systems: All systems reviewed & are unremarkable except as noted in Subjective Physical Exam Physical Exam: General: A&Ox3. NAD. Cooperative. HEENT: Atraumatic, normocephalic. And hearing grossly intact Pulm: CTAB A&P. -wheezes, -rales, -rhonchi. Symmetrical chest rise. No increase in work of breathing. No respiratory distress. Cardiac: RRR, -mrg. Radial pulses intact and symmetrical. Abdomen: Appropriately tender at postsurgical site, otherwise nontender without rebound. Results & Data Results & Data ([facility]) Vital Signs (Past 12 Hours) Vital Signs Temp Pulse Pulse Resp BP BP Pulse Ox 11/27/21 12:35 36.8 C 76 16 119/76 97 11/27/21 11:45 36.4 C L 79 14 124/75 96 11/27/21 11:35 73 16 135/73 97 06/12/22 11:25 59 L 13 122/67 100 11/27/21 11:15 64 18 126/72 97 11/27/21 11:08 36.4 C L 73 14 132/78 100 11/27/21 07:00 36.6 C 60 16 115/75 98 PG Care Time/CCT Total # of Minutes Spent Total Time Spent with Patient: Total time spent is greater than 50% in coordination of care (as documented) at patient's floor/unit and/or counseling patient: Coding Level of Care Code 55920 Subseq Hosp Care Lvl 2 Diagnoses Right upper quadrant abdominal pain R10.11 Abnormal LFTs R79.89
[2021-11-27] MEDS: oxyCODONE/ACETAMINOPHEN 5mg/325mg TAB PO PRN ×2 (13:04→19:21)
--- NOTE | 2021-11-27 20:40 | Operative Report (OR) ---
PREOPERATIVE DIAGNOSIS: Symptomatic cholelithiasis with elevated LFTs. POSTOPERATIVE DIAGNOSIS: Symptomatic cholelithiasis with elevated LFTs. PROCEDURE PERFORMED: Laparoscopic cholecystectomy. SURGEON: David Liao MD CONSUMER PRODUCT ADVISOR: None. ANESTHESIA: General endotracheal with 0.5% Marcaine with epinephrine local. ESTIMATED BLOOD LOSS: 10 mL COMPLICATIONS: None. DRAINS: None. SPECIMENS: Gallbladder sent for pathologic evaluation. INDICATIONS FOR PROCEDURE: This is a 26-year-old female who was admitted with abdominal pain, underw ent a workup which showed gallstones and likely a common bile duct stone, which had passed through. MRCP was negative. LFTs were normal. We will plan on doing a laparoscopic cholecystectomy. We went over the risks in detail with her. DESCRIPTION OF PROCEDURE: The patient was taken to the OR and underwent excellent general endotrache al anesthesia. The abdomen was prepped and draped in a normal sterile fashion. Transverse supraumbi lical incision was made. Dissection was taken down to identify the anterior fascia. 2-0 Vicryl was placed in the side of the midline. The midline was incised sharply. A blunt Mega trocar was then inserted and good pneumoperitoneum was achieved to 15 mmHg pressure. The patient was placed in head up and rolled to the left. An 11 subxiphoid and two 5 lateral ports were placed in normal fashion. The gallbladder fundus was grasped and retracted superiorly. The neck was grasped and retracted late rally. The peritoneal attachments were taken down with electrocautery forceps and hook. A medial an d lateral window was created between the gallbladder and gallbladder fossa showing the two structures going straight to the gallbladder. Once this critical view was seen, 3 clips were placed distally o n the cystic duct and 1 proximally and the cystic duct was transected. Two clips were placed proxima lly in the cystic artery, one distally and the cystic artery was transected. Electrocautery hook was then used to remove the gallbladder from the gallbladder fossa. There was no spillage of bile or st ones. Endobag was used to remove the gallbladder through the supraumbilical incision. The pneumoper itoneum was then reestablished. Abdomen was then irrigated out, suctioned clear. Some raw areas on the gallbladder fossa were cauterized. There is no bleeding at time of the end of the procedure. Giovana arauz tolerated the procedure well without complications, sent to post-recovery period of observation and then be discharged back to her room when she meets criteria. Job ID: [id number]
[2021-11-28] MEDS: CEFEPIME 2,000 MG in SYRINGE 0 ML IV SCH ×2 (00:01→11:20)
[2021-11-28] MEDS: oxyCODONE/ACETAMINOPHEN 5mg/325mg TAB PO PRN ×2 (00:47→08:52)
[2021-11-28] MEDS: FAMOTIDINE 20 MG in SYRINGE 3 ML IV SCH (05:34)
[2021-11-28 06:33] LABS: Basophils # (auto) 0.02 K/uL (0-0.2); Basophils % (auto) 0.2 %; Eosinophils # (auto) 0.08 K/uL (0-0.5); Eosinophils % (auto) 0.9 %; Hematocrit (blood only) 38.1 % (37-47); Hemoglobin 12.4 g/dL (12.0-16.0); Immature Granulocytes # (auto) 0.01 K/uL (0.00-0.02); Immature Granulocytes % (auto) 0.1 %; Lymphocytes # (auto) 3.04 K/uL (1.2-3.4); Lymphocytes % (auto) 35.1 %; Mean Corpuscular Hemoglobin 29.8 pg (25-34); Mean Corpuscular Hgb Conc 32.5 g/dL (32-36); Mean Corpuscular Volume 91.6 fL (80-100); Mean Platelet Volume 11.4 fL (7.4-10.4); Monocytes # (auto) 0.52 K/uL (0.11-0.59); Neutrophils # (auto) 4.99 K/uL (1.4-6.5); Neutrophils % (auto) 57.7 %; Platelet Count 265 K/uL (130-400); RDW Coefficient of Variation 13.9 % (11.5-14.5); RDW Standard Deviation 46.9 fL (36.4-46.3); Red Blood Count 4.16 M/uL (4.2-5.4); White Blood Count 8.66 K/uL (4.8-10.8)
[2021-11-28 06:52] LABS: Albumin Globulin Ratio 1.4 (0.9-2); Albumin Level 3.7 gm/dl (3.4-5.0); BUN Creatinine Ratio 9.5 (10-20); Bilirubin,Total 0.6 mg/dl (0.2-1.0); Calcium 8.6 mg/dl (8.5-10.1); Est GFR (African American) 142.5 ml/min; Est GFR (Non-African American) 122.9 ml/min; Globulin 2.7 gm/dl (2.5-4.0); Magnesium 1.7 mg/dl (1.7-2.4); Potassium 3.6 mmol/L (3.5-5.1); Total Protein 6.4 gm/dl (6.0-8.3)
--- NOTE | 2021-11-28 11:31 | Discharge Summary ---
Date of Service November 28, 2021 Admission HPI Per Admitting Provider The patient is a 26-year-old female with a past medical history including vitamin D deficiency, tobacco use, control use. She presents with symptoms as noted above. She denies any recent travels or sick exposures. Her symptoms began after trying to eat cantaloupe for breakfast, which caused her to vomit. Principal Diagnosis Cholelithiasis Discharge Exam General: A&Ox3. NAD. Cooperative. HEENT: Atraumatic, normocephalic. And hearing grossly intact Pulm: CTAB A&P. -wheezes, -rales, -rhonchi. Symmetrical chest rise. No increase in work of breathing. No respiratory distress. Cardiac: RRR, -mrg. Radial pulses intact and symmetrical. Abdomen: Appropriately tender at postsurgical site and incisions most prominent at umbilicus, otherwise nontender without rebound. At time of bedside assessment supraumbilical port site with scant oozing but without dehiscence. Subsequently seen by surgery and redressed. Discharge Data Allergies Allergy/AdvReac Type Severity Reaction Status Date / Time No Known Allergies Allergy Verified 11/25/21 18:16 Consultations 11/25/21 22:23 ED Decision to Admit Stat 11/26/21 15:50 Consult General Surgery Routine Procedures Performed Operation Date: 11/27/21 11:30 Actual Procedures p Laparoscopic Cholecystectomy(Not Applicable) - David Liao MD Ordered Studies 11/25/21 17:12 US gallbladder Stat 11/25/21 18:51 CT angio chest PE protocol Stat 11/25/21 20:47 CT abd pelvis wo con Urgent 11/26/21 12:08 MR MRCP Routine Hospital Course (1) Right upper quadrant abdominal pain: Elizabeth is a 26-year-old female who presented with cholelithiasis and elevated liver enzymes who underwent cholecystectomy. Cholecystectomy was uncomplicated, she received perioperative antibiotics, and was discharged home without additional antibiotics. AST/ALT were downtrending at discharge but not normalized, she was recommended to have follow-up to her PCP and surgery with repeat CMP in 1 week. To do as outpatient: 1. Follow-up with PCP and surgery 2. Repeat CMP within 1 week to ensure normalization of LFTs Medial right upper quadrant pain, cholelithiasis No leukocytosis, afebrile CT: Cholelithiasis with no CT evidence for acute cholecystitis. By CT, there is evidence for fatty infiltration of liver. Bilateral cystic changes of the ovaries.4. No other acute intra-abdominal or pelvic abnormality on these limited noncontrast images. - Right upper quadrant abdominal pain/abnormal LFTs on admit T bili normalized AST/ALT downtrending 11/27. Consistent with choledocholithiasis that passed and remaining cholelithiasis - MRCP with cholelithiasis, without choledocho S/p cholecystectomy 11/27 uncomplicated Dimer is elevated, follow-up CTA was negative for PE Diet advanced well overnight, tolerating normal diet at time of discharge without pain (2) Abnormal LFTs: See above Patient also anticipated upcoming travel. Was prescribed TATE hoses with break precautions given to help prevent blood clots Total Time Total Time Spent Total Time Spent (In Minutes): Time spend day of discharge 40minutes including direct patient care, documentation, review of labs and images, and coordination of care. Discharge Plan Discharge Items Patient Disposition: Home - Self-Care Reason For Visit: ABNORMAL LFT'S, RUQ PAIN Discharge Diagnosis: Cholelithiasis Activity: As commented below Non-emergency contact: Primary Care Provider and Surgeon Call non-emergency contact if: you have any medication questions Follow-up/Referrals: Ramiro Correia DO [Primary Care Provider] - 11/30/21 12:00 pm David Liao MD [Physician] - 12/08/21 12:30 pm (APPT WITH AB DIOR PA-C) Diet: Low Fat Addtl Attending Provider Instructions: You are seen in the hospital for symptomatic gallbladder stones with elevated liver enzymes. An MRI did not show any obstructing stone in the ducts leading out of your liver/gallbladder, however your labs suggest that you may have had a impacted stone which passed or temporary obstruction at the gallbladder with remaining stones at high risk for further worsening. Your case was reviewed by surgery and you underwent a laparoscopic cholecystectomy, uncomplicated. You are doing well, and you are tolerating a diet well at time of discharge. You received perioperative antibiotics without ongoing signs of infection, and your gallbladder removal was uncomplicated. You have not been prescribed further antibiotics at this time You may take Tylenol 500mg every 4 hours as needed for pain. Your liver enzymes were improving but not yet normal at time of discharge. Please have a follow-up CMP (blood work) performed with your primary care provider within 1 week Please use TATE stockings as noted below to help prevent blood clots while traveling If you develop any new or worsening symptoms including fever, chills, sweats, chest pain, chest pressure, difficulty breathing, uncontrolled nausea/vomiting, rash, wheezing, passing out or nearly passing out, bleeding, black/bloody bowel movements, or other new or concerning symptoms please call your primary care physician, or call 911 for re-evaluation in the emergency department if you are very concerned. Addtl Airfield Services Officer Provider Instructions: Post-Surgical ~Discharge Instructions Activity Recommendations: - lifting limitation: (25 pounds for 4 weeks), - exercise/sex/sports limit: (nonstrenuous for 2 weeks), - driving or machine use limit: (none for 1 week or until pain free and no longer taking narcotic pain medication), - Shower/bathe limit: (may shower beginning tonight) Diet: - Resume previous diet SPECIAL CARE INSTRUCTIONS: - May shower tonight. Let water run over area and pat dry. - Leave steri strips on for one week and then remove. - Call the surgeon's office with any questions or concerns - - (ex. temperature higher than 101 degrees F, excessive bleeding or pain). MEDICATIONS: - Resume previous medications unless instructed otherwise by your surgeon. - May alternate take extra strength Tylenol as needed for mild to moderate pain -500 mg Tylenol every 4 hours as needed - Percocet 1 every 4 hours, as needed for moderate to severe pain - Recommend daily stool softener (Colace, [id number]) while taking narcotic pain medication to prevent constipation or straining. FOLLOW UP VISIT: - If not already scheduled, please call the office to schedule a two week follow-up appointment. Office number Highly advise stopping every 1-2 hours during your travel to walk for 5-10 minutes and wear TATE stockings to prevent blood clots from forming. Pending Studies at Discharge: No Stand-Alone Forms: [employer], Smoking Cessation Medications and DC Order Prescriptions: New oxycodone-acetaminophen [Percocet] 5-325 mg tablet 1 tab PO Q4H PRN (Reason: pain) Qty: 10 RF: 0 Continued norethindrone ac-eth estradiol [07/07 (21)] 1-20 mg-mcg tablet See Rx Instructions .ROUTE .COMPLEX Qty: 21 RF: 4 Discharge Orders: Discharge Order (Routine); Ordered 11/28/21 Ordered By: Chau Girard Admission Data Admit Date/Time: 11/25/21 23:11 Attending Provider: Chau Girard Admit Provider: Keron Kahn Primary Care Provider: Ramiro Correia Other Providers: Keron Kahn ; David Liao Coding Level of Care Code D/C DAY MANAGEMENT >30 MINS Diagnoses Right upper quadrant abdominal pain R10.11 Abnormal LFTs R79.89
--- NOTE | 2021-11-28 11:35 | Surgery Progress Note ---
Date of Service November 28, 2021 Assessment & Plan (1) Right upper quadrant abdominal pain: (2) Abnormal LFTs: Plan: POD # 1 s/p lap cholecystectomy -afebrile, vss - minimal postop pain controlled - lfts improving - tolerating diet - small hematoma, ecchymosis of umbilical incision Plan: Okay for discharge from surgical standpoint discharge instructions reviewed TATE stocking for home and travel Rx sent to pharmacy for Percocet prn pain f/u 2 weeks Admission and Anticipated Discharge Date Admission Date: November 25, 2021 Subjective feeling well, no pain just soreness at umbilical incision had some bleeding from incision this morning, bruising present tolerated reg diet no n/v no pain similar to preop pain no chest pain/sob Physical Exam Constitutional: WD/WN, vitals as above no acute distress and not ill appearing Neck: normal visual inspection and trachea midline Respiratory: normal respiratory effort; no respiratory distress, no labored breathing and no retractions Gastrointestinal (Abdomen): Inspection/Auscultation: abdomen normal to inspection and + abdominal surgical incision (umbilical incision with ecchymosis and tenderness, no induration. ); abdomen not distended Percussion/Palpation: + abdomen tender (at umbilical incision) and abdomen soft; no guarding and abdomen not rigid Skin: no rashes, warm and dry Psychiatric: A+Ox3, euthymic affect Results & Data ([facility]) Vital Signs (Past 12 Hours) Vital Signs Temp Pulse Pulse Resp BP BP Pulse Ox 11/28/21 11:31 36.7 C 78 66 16 117/81 122/75 98 11/28/21 08:04 36.7 C 66 16 122/75 98 11/28/21 04:18 36.8 C 50 L 16 123/75 97 11/27/21 23:33 36.8 C 56 L 16 117/71 96 Laboratory Results 11/28/21 11/28/21 Range/Units 06:03 06:03 WBC 8.66 (4.8-10.8) K/uL RBC 4.16 L (4.2-5.4) M/uL Hgb 12.4 (12.0-16.0) g/dL Hct 38.1 (37-47) % MCV 91.6 (80-100) fL MCH 29.8 (25-34) pg MCHC 32.5 (32-36) g/dL RDW Std Deviation 46.9 H (36.4-46.3) fL RDW Coeff of Maria Isabel 13.9 (11.5-14.5) % Plt Count 265 (130-400) K/uL MPV 11.4 H (7.4-10.4) fL Immature Gran % (Auto) 0.1 % Neut % (Auto) 57.7 % Lymph % (Auto) 35.1 % [place] % (Auto) 6.0 % Eos % (Auto) 0.9 % Baso % (Auto) 0.2 % Neut # (Auto) 4.99 (1.4-6.5) K/uL Lymph # (Auto) 3.04 (1.2-3.4) K/uL [place] # (Auto) 0.52 (0.11-0.59) K/uL Eos # (Auto) 0.08 (0-0.5) K/uL Baso # (Auto) 0.02 (0-0.2) K/uL Immature Gran # (Auto) 0.01 (0.00-0.02) K/uL Sodium 137 (136-145) mmol/L Potassium 3.6 (3.5-5.1) mmol/L Chloride 104 (98-107) mmol/L Carbon Dioxide 26 (21-32) mmol/L Anion Gap 7 (3-11) BUN 6 (6-23) mg/dl Creatinine 0.63 (0.6-1.2) mg/dl Est Cr Clr Drug Dosing 136.0 ml/min Est GFR ( Amer) 142.5 ml/min Est GFR (Non-Af Amer) 122.9 ml/min BUN/Creatinine Ratio 9.5 L (10-20) Glucose 103 H (70-99(Fasting)) mg/dl Calcium 8.6 (8.5-10.1) mg/dl Magnesium 1.7 (1.7-2.4) mg/dl Total Bilirubin 0.6 (0.2-1.0) mg/dl AST 70 H (13-39) U/L ALT 199 H (7-52) U/L Alkaline Phosphatase 140 H (34-104) U/L Total Protein 6.4 (6.0-8.3) gm/dl Albumin 3.7 (3.4-5.0) gm/dl Globulin 2.7 (2.5-4.0) gm/dl Albumin/Globulin Ratio 1.4 (0.9-2)
[2021-11-29 16:47] LABS: Anti Nuclear Antibody Screen NEGATIVE (NEGATIVE); Smooth Muscle Antibody POSITIVE (NEGATIVE)
[2021-11-29 18:41] LABS: Smooth Muscle Ab Titer 1:40 titer (<1:20)
[2021-11-30 07:21] LABS: Babesia microti DNA Not Detected (Not Detected)
== END 2021-11-28 13:10 | disposition home or self-care (01) | DRG 419 ==
LOC: ED 16:06 → 3N 23:11 → INTOOBSV 23:11 → SUATTDRO 23:11 → 3N 11-26 00:41

== ENCOUNTER 2022-12-05 07:30 | Inpatient (IN) ==
[2022-12-05] MEDS ORDERED: INSULIN REGULAR 250 UNITS in SODIUM CHLORIDE 0.9% 247.5 ML IV PRN (07:39)
[2022-12-05] MEDS ORDERED: DEXTROSE 50% 50 ML SYRINGE IV PRN (07:39)
[2022-12-05] MEDS ORDERED: LIDOCAINE 1% LOCAL 20 ML VIAL INFIL PRN (07:39)
[2022-12-05] MEDS ORDERED: LACTATED RINGER'S 1,000 ML IV PRN (07:39)
[2022-12-05] MEDS ORDERED: SODIUM CHLORIDE 0.9% 1000ML 1,000 ML IV PRN (07:39)
[2022-12-05] MEDS ORDERED: DEXTROSE 5% 1,000 ML IV PRN (07:39)
[2022-12-05] MEDS ORDERED: OXYTOCIN 30 UNITS/500 ML BAG IV PRN ×3 (07:39→13:06)
[2022-12-05] MEDS ORDERED: Patient's HEIGHT &/or WEIGHT Needed SCH (07:45)
--- NOTE | 2022-12-05 08:06 | Labor Progress Brief Note ---
Date of Service December 05, 2022 Subjective Presents for IOL, without OB complaints. C/B A2GDM. Assessment & Plan (1) Encounter for induction of labor: Plan: Pitocin ordered, GBS neg / no abx, epidural on request, consider AROM when well applied. Admission and Anticipated Discharge Date Admission Date: December 05, 2022 Physical Exam Genitourinary: FHT Cat 1 [place] irregular / irritable Cvx 3/75/-2. intact membranes. Vtx palpable. Results & Data Vital Signs (Past 12 Hours) Vital Signs Temp Pulse Resp BP 12/05/22 07:34 98.2 F 93 H 20 122/85 Coding Level of Care Code None Diagnoses Encounter for induction of labor Z34.90
[2022-12-05 08:22] LABS: Hematocrit (blood only) 32.5 % (37.0-47.0); Hemoglobin 10.9 g/dl (12.0-16.0); Mean Corpuscular Hemoglobin 29.5 pg (25.0-34.0); Mean Corpuscular Hgb Conc 33.5 g/dL (32.0-36.0); Mean Corpuscular Volume 87.8 fL (80.0-100.0); Mean Platelet Volume 11.7 fL (9.4-12.4); Platelet Count 281 K/uL (130-400); RDW Coefficient of Variation 13.5 % (11.5-14.5); RDW Standard Deviation 43.2 fL (36.4-46.3); White Blood Count 8.88 K/ul (4.8-10.8)
[2022-12-05] MEDS ORDERED: ePHEDrine sulfate 50 MG/ML AMP ONE (10:27)
[2022-12-05] MEDS ORDERED: fentaNYL citrate PF 100 MCG/2 ML VIAL ONE (10:29)
[2022-12-05] MEDS ORDERED: BUPIVACAINE 0.25% PF 30 ML VIAL ONE (10:29)
[2022-12-05] MEDS ORDERED: SODIUM CHLORIDE 0.9% PF INJ 10 ML VIAL ONE (10:29)
[2022-12-05] MEDS ORDERED: LIDOCAINE 2%/EPINEPHRINE 1:200,000 20 ML PF ONE (10:29)
[2022-12-05] MEDS ORDERED: fentaNYL 2MCG/ML ROPIVACAINE 1.25MG/ML 100 ML BAG EPI ONE (10:30)
--- NOTE | 2022-12-05 10:44 | Anesthesiology Consultation ---
Date of Service December 05, 2022 Assessment & Plan (1) Encounter for pre-operative examination: Chart Review Chart Review: Acceptable Risk for Labor Epidural History Height/Weight Height: 5 ft 4 in Weight: 78.925 kg Allergies Allergy/AdvReac Type Severity Reaction Status Date / Time No Known Allergies Allergy Verified 12/04/22 14:37 Medications Home Medications Medication Instructions Recorded Confirmed Last Taken prenat.vits,lissette,oaf-asyy-voihs 1 tab PO DAILY 04/24/22 12/05/22 12/05/22 06:00 acetone (urine) test (Ketone Urine #50 ea 07/20/22 12/04/22 Unknown Test strips) blood sugar diagnostic (OneTouch #150 ea 07/20/22 12/04/22 Unknown Verio test strips) blood-glucose meter (OneTouch #1 ea 07/20/22 12/04/22 Unknown Verio Reflect Meter) lancets 33 gauge (OneTouch Delica #150 ea 07/20/22 12/04/22 Unknown Lancets) pen needle, diabetic 32 gauge x #100 ea 10/04/22 12/04/22 Unknown 5/32" (BD Ultra-Fine Anita Pen Needle) blood sugar diagnostic (OneTouch #50 ea 10/27/22 12/04/22 Unknown Verio test strips) insulin NPH isoph U-100 human 100 30 unit (0.3 mL) subcut QPM #15 mL 11/20/22 12/05/22 12/04/22 22:00 unit/mL (3 mL) subcutaneous pen (Novolin N FlexPen) Active Medications Generic Name Dose Route Start Last Admin Trade Name Freq PRN Reason Stop Dose Admin Lactated Ringer's 1,000 mls @ 125 mls/hr 12/05/22 07:39 12/05/22 10:25 Lr IV 12/07/22 07:38 999 mls/hr .Q8H PRN Infusion L&D Protocol Protocol Oxytocin 30 units in 500 mls @ 8 mls/hr 12/05/22 07:39 12/05/22 10:02 Pitocin IV 12/07/22 07:38 0.48 units/hr .Q24H PRN 8 mls/hr Labor Induction/Augmentation Titration Protocol 0.48 UNITS/HR Past Medical History Medical History (Updated 12/05/22 @ 10:44 by Jalen Moss MD) Abnormal LFTs Bacterial vaginosis Chest pain Costochondritis, acute History of chicken pox on oral contraceptive Past Family History Family History Sister Depression Grandmother (Paternal) Breast cancer Great Grandmother Mother Ovarian cancer Osteoporosis Grandmother (Maternal) Myocardial infarction Breast cancer Denies family history of Prostate cancer Colorectal cancer Past Surgical History Surgical History History of foot surgery S/P laparoscopic cholecystectomy 11/27/21 Dr. David Liao at [facility] S/P tonsillectomy S/P wisdom tooth extraction Social History Smoking Status: Light tobacco smoker tobacco type: cigarettes Smoking cigarettes per day: 5-7 Do You Dip or Chew Tobacco: No Hx Alcohol Use: No Hx Substance Use: No substance use type: does not use Physical Exam Vital Signs Last Vital Signs Temp 36.8 C 12/05/22 07:34 Pulse 60 12/05/22 10:37 Resp 20 12/05/22 07:34 BP 132/87 12/05/22 10:37 Testing Laboratory Results 12/05/22 07:57 12/05/22 12/05/22 09:02 08:01 POC Glucose 86 102 H
[2022-12-05] MEDS ORDERED: ePHEDrine sulfate 50 MG/ML AMP IV PRN (11:13)
[2022-12-05] MEDS ORDERED: BUPIVACAINE 0.25% PF 30 ML VIAL EPI STA (11:13)
[2022-12-05] MEDS ORDERED: BUPIVACAINE 0.25% PF 30 ML VIAL EPI PRN (11:13)
[2022-12-05] MEDS ORDERED: fentaNYL citrate PF 100 MCG/2 ML VIAL EPI PRN (11:13)
[2022-12-05] MEDS ORDERED: LIDOCAINE 2% MPF LOCAL 5 ML VIAL EPI PRN (11:13)
[2022-12-05] MEDS ORDERED: ROPIVACAINE 0.5% PF 5 MG/ML 20 ML VIAL EPI PRN (11:13)
[2022-12-05] MEDS ORDERED: NALOXONE HCL 0.4 MG/1 ML VIAL/CARP IV PRN (11:13)
[2022-12-05] MEDS ORDERED: fentaNYL citrate PF 100 MCG/2 ML VIAL EPI STA (11:13)
[2022-12-05] MEDS ORDERED: ONDANSETRON INJ 2 MG/ML 2 ML VIAL IV PRN (11:13)
[2022-12-05] MEDS ORDERED: SODIUM CHLORIDE 0.9% PF INJ 10 ML VIAL EPI STA (11:13)
[2022-12-05] MEDS ORDERED: LIDOCAINE 2%/EPINEPHRINE 1:200,000 20 ML PF EPI STA (11:13)
[2022-12-05] MEDS ORDERED: NALOXONE HCL 1 MG in SODIUM CHLORIDE 0.9% 1000ML 1,000 ML IV PRN (11:13)
[2022-12-05] MEDS ORDERED: SODIUM CHLORIDE 0.9% PF INJ 10 ML VIAL EPI PRN (11:13)
[2022-12-05] MEDS ORDERED: fentaNYL 2MCG/ML ROPIVACAINE 1.25MG/ML 100 ML BAG EPI PRN (11:13)
[2022-12-05] MEDS ORDERED: DIPHTHERIA/TETANUS/PERTUSSIS Vaccine (Tdap, Age 7+yrs) 0.5mL SYR/VL IM ONE (13:06)
[2022-12-05] MEDS ORDERED: HYDROCORTISONE ACETATE 25 MG SUPP PR PRN (13:06)
[2022-12-05] MEDS ORDERED: BENZOCAINE 20% AER SPR 82.5 GM CAN EXT PRN (13:06)
[2022-12-05] MEDS ORDERED: oxyCODONE/ACETAMINOPHEN 5mg/325mg TAB PO PRN (13:06)
[2022-12-05] MEDS ORDERED: bisacodyL 10 MG SUPP PR PRN (13:06)
[2022-12-05] MEDS ORDERED: ACETAMINOPHEN 325 MG TAB PO PRN (13:06)
--- NOTE | 2022-12-05 13:10 | Delivery Summary ---
Vaginal Delivery Summary Date of Service December 05, 2022 Vaginal Delivery Summary [facility] Patient is a 27-year-old 2 para 1-0-0-1 female EDC of 12/11/2022 who presents at 39-1/7 weeks for induction of labor because of GDM on insulin. She received effective epidural analgesia and Pitocin augmentation of her labor. She progressed to full dilation and then had spontaneous rupture membranes for clear fluid. The head delivered without maternal effort. A loose double nuchal cord was reduced prior to delivering the rest of the , again, without maternal effort. The female infant was vigorous and crying upon delivery. After 1 minute, the cord was clamped and cut. After cord blood was obtained, the placenta was expressed intact with a three-vessel cord. bleeding was controlled with dilute Pitocin and fundal massage. Perineum was noted to be intact. Estimated blood loss 200 cc. Mother and infant were doing well after delivery. [facility] [place]aginal Delivery Charge Delivery Type Details: [facility]
--- NOTE | 2022-12-05 13:48 | Anesthesia Procedure Note ---
Date of Service December 05, 2022 Anesthesia Post Epidural Note Vital Signs Vital Signs: Temp Pulse Resp BP Pulse Ox 36.6 C 77 20 155/87 H 99 12/05/22 13:03 12/05/22 13:32 12/05/22 13:32 12/05/22 13:32 12/05/22 12:34 Pain Intensity Abdomen: Pain Intensity: 0 Notes Mental Status: alert / awake / arousable and participated in evaluation Nausea / Vomiting: adequately controlled Pain: adequately controlled Airway Patency, RR, SpO2: stable & adequate BP & HR: stable & adequate Hydration State: stable & adequate Neuraxial Anesthesia: was administered and sensory block is resolving Anesthetic Complications: no major complications apparent Epidural: Removed without complications and With tip intact
[2022-12-05] MEDS: IBUPROFEN 600 MG TAB PO PRN ×2 (19:49→23:50)
[2022-12-05] MEDS: DOCUSATE SODIUM 100 MG CAP PO SCH (21:04)
[2022-12-06 05:35] LABS: Hematocrit (blood only) 29.3 % (37.0-47.0); Hemoglobin 9.7 g/dl (12.0-16.0); Mean Corpuscular Hemoglobin 29.4 pg (25.0-34.0); Mean Corpuscular Hgb Conc 33.1 g/dL (32.0-36.0); Mean Corpuscular Volume 88.8 fL (80.0-100.0); Mean Platelet Volume 11.8 fL (9.4-12.4); Platelet Count 253 K/uL (130-400); RDW Coefficient of Variation 13.4 % (11.5-14.5); RDW Standard Deviation 43.9 fL (36.4-46.3); White Blood Count 9.45 K/ul (4.8-10.8)
--- NOTE | 2022-12-06 06:25 | Obstetrical Progress Note ---
Date of Service December 06, 2022 Assessment & Plan (1) care following vaginal delivery: Plan - Overall, feeling well and eating well today - Infant feeding going well without concern - Urinating and passing gas appropriately - Ambulating well in room - Pain controlled w/ Ibuprofen - Hgb 9.7 on 12/06 - Vitals stable and wnl - Routine PP care progressing well - Anticipate discharge @ 24-48 hours PP - Recommending f/u outpatient in 6 weeks Admission and Anticipated Discharge Date Admission Date: December 05, 2022 Supervising Physician Co-Signing Physician Notes Resident Physician Supervision Note: I interviewed and examined the patient. Discussed with Dr. Corbett and agree with findings and plan as documented in the note. Any exceptions or clarifications are listed here: PP1 s/p , doing well. VSS, exam benign and wnl. Desires dc home at 24 hrs, ok to do so Documented By: Regina Oakes MD Subjective Patient is a 27F who is PPD #1 following delivery at 39 1/7. She reports feeling well overall this morning. - Ambulation - well throughout room - Voiding/Fraga - independent voids, no dysuria or pressure - Gas/Stool - passing gas, no bowel movement (notes pressure, taking stool softener) - Diet - regular, no nausea or emesis - Lochia - heavier than yesterday, small clots - Infant Feeding Type - breast feeding w/o concern - Pain Level - 3/10, controlled with Ibuprofen Review of Systems - Denies fever, chills, sweats - Denies shortness of breath, difficulty breathing, chest pain, palpitations, chest pressure. - Denies breast pain. - Denies dysuria. - Denies headache or changes in vision. Physical Exam Physical Exam: General: Alert, oriented. No acute distress. Cardiac: RRR, normal S1/S2, no murmurs/rubs/gallops. Respiratory: Non-labored, CTAB, no wheezes/rales/rhonchi. Symmetric chest rise. Abdomen: Soft, nontender, nondistended. Bowel sounds present. Uterus: Uterine fundus firm, palpable 2 cm below umbilicus. Lower Extremities: No lower extremity edema or swelling. No deep calf pain. Aden's negative bilaterally. Results & Data Vital Signs (Past 12 Hours) Vital Signs Temp Pulse Resp BP Pulse Ox O2 Del Method 06/21/23 03:05 36.5 C 65 18 118/76 99 Room Air 12/05/22 23:48 36.5 C 75 20 123/77 99 Room Air 12/05/22 19:49 36.5 C 69 20 134/84 98 Room Air Resident Activity Tracking Resident Involvement: Resident Care Provided Care Provided: OB Delivery
[2022-12-06] MEDS: IBUPROFEN 600 MG TAB PO PRN ×2 (06:35→14:11)
[2022-12-06] MEDS ORDERED: PRENATAL VITAMIN 1 TAB PO SCH (08:00)
[2022-12-06] MEDS: DOCUSATE SODIUM 100 MG CAP PO SCH (08:03)
[2022-12-06] MEDS ORDERED: bisacodyL 5 MG TABEC PO SCH (20:00)
== END 2022-12-06 14:35 | disposition home or self-care (01) | DRG 807 ==
LOC: 4S1 07:30 → 4E2 15:54